=== PATIENT | female | born 1970 | race Caucasian/White ===

== ENCOUNTER 2017-06-05 16:04 | Inpatient (IN) | payer MEDICARE, OTHER ==
[2017-06-05] MEDS ORDERED: SODIUM CHLORIDE 0.9% 1,000 ML IV STA ×2 (16:40)
[2017-06-05] MEDS ORDERED: ONDANSETRON 4 MG/2 ML VIAL IVP STA (16:58)
[2017-06-05] MEDS ORDERED: THIAMINE 100 MG TAB PO SCH (17:00)
[2017-06-05 17:05] LABS: Basophils % (A) 1 %; CH 34.4; CHCM 34.7; Eosinophils # (A) 0.1 k/uL (0-0.7); Eosinophils % (A) 2 %; HCT 35.3 % (34.0-46.0); HDW 1.98; HGB 12.2 gm/dL (11.4-16.0); Luc # (Auto) 0.11; Luc % (Auto) 2; Lymphocytes # (A) 2.3 k/uL (1.0-4.8); Lymphocytes % (A) 37 %; MCH 34.5 pg (25.0-35.0); MCHC 34.7 g/dL (31.0-37.0); MCV 99.5 fL (80.0-100.0); Mean Platelet Volume 8.8; Monocytes # (A) 0.3 k/uL (0-1.0); Monocytes % (A) 5 %; Neutrophils # (A) 3.3 k/uL (1.3-7.7); Neutrophils % (A) 53 %; RBC 3.55 m/uL (3.80-5.40); RDW 13.4 % (11.5-15.5); WBC 6.2 k/uL (3.8-10.6); WBC (Perox) 6.07
[2017-06-05 17:10] LABS: INR 1.3 (<1.2); Prothrombin Time 12.9 sec (9.0-12.0)
[2017-06-05 17:14] LABS: ALT 31 U/L (9-52); AST 21 U/L (14-36); Alkaline Phosphatase 55 U/L (38-126); Amylase 36 U/L (30-110); Anion Gap 13 mmol/L; Blood Urea Nitrogen 12 mg/dL (7-17); Calcium 9.2 mg/dL (8.4-10.2); Carbon Dioxide 23 mmol/L (22-30); Chloride 102 mmol/L (98-107); Glucose 95 mg/dL (74-99); Non-African American GFR(MDRD) >60 (>60 ml/min/1.73 sqM); Potassium 4.8 mmol/L (3.5-5.1); Sodium 138 mmol/L (137-145); Total Bilirubin 0.3 mg/dL (0.2-1.3); Total Protein 6.3 g/dL (6.3-8.2)
[2017-06-05 17:29] LABS: Alcohol 153 mg/dL
[2017-06-05] MEDS ORDERED: SODIUM CHLORIDE 0.9% 1,000 ML IV ONE (18:11)
--- NOTE | 2017-06-05 18:11 | ED ---
Alcohol HPI - General Chief Complaint: Alcohol Stated Complaint: ETOH Time Seen by Provider: 06/05/17 16:32 Source: patient, EMS Mode of arrival: EMS Limitations: altered mental status - History of Present Illness Initial Comments: This 46-year-old white female presents by EMS with the complaint of alcohol intoxication. She apparently was found at the steps of a [place]oodoo. She is covered in feces and dogs. She apparently had been drinking. She is quite obtunded upon my evaluation and is not answering questions very well. She does relate that she drinks some alcohol but denies any drugs. History is otherwise very limited likely due to alcohol intoxication. Her boyfriend does give further history. He states that she has been sober for the past 2 months and this is the first time she's drank in 2 months. She apparently was placed on Campral to help her stop drinking approximately 2 months ago. Since being on that medication, she apparently has been confused at times per the boyfriend of 9 years. He relates that she otherwise has been doing fairly well. He states that he last saw her this morning at around noon. - Related Data Home Medications Medication Instructions Recorded Confirmed busPIRone HCL [Buspar] 30 mg PO BID 07/21/14 06/05/17 Cyclobenzaprine [Flexeril] 10 mg PO TID PRN 11/22/15 06/05/17 Prazosin HCl [Minipress] 2 mg PO HS 11/07/16 06/05/17 Acamprosate Calcium [Campral] 666 mg PO TID 06/05/17 06/05/17 Butalb/APAP/Caff 50-325-40Mg 1 tab PO TID PRN 06/05/17 06/05/17 [Fioricet 50-325-40] DULoxetine HCL [Cymbalta] 20 mg PO DAILY 06/05/17 06/05/17 Divalproex [Depakote] 250 mg PO BID 06/05/17 06/05/17 Escitalopram [Lexapro] 20 mg PO DAILY 06/05/17 06/05/17 Estrogen,Con/M-Progest Acet 1 tab PO DAILY 06/05/17 06/05/17 [Prempro 0.625-2.5 mg Tablet] Famotidine 40 mg PO DAILY 07/20/17 07/20/17 HYDROcodone/APAP 7.5-325MG [[place] 1 tab PO DAILY PRN 06/05/17 06/05/17 7.5-325] Loratadine [Claritin] 10 mg PO DAILY 06/05/17 06/05/17 Melatonin 3 mg PO HS 06/05/17 06/05/17 QUEtiapine FUMARATE [Seroquel Xr] 600 mg PO HS 06/05/17 06/05/17 Allergies Allergy/AdvReac Type Severity Reaction Status Date / Time Penicillins Allergy Anaphylaxis Verified 06/05/17 16:48 Cnagwxm-Wrz-Ads Reductase Allergy Rash/Hives Verified 06/05/17 16:48 Inhibitor venom-honey bee Allergy Anaphylaxis Verified 06/05/17 16:25 [bee venom (honey bee)] Review of Systems ROS Statement: Those systems with pertinent positive or pertinent negative responses have been documented in the HPI. ROS Other: All systems not noted in ROS Statement are negative. Past Medical History Past Medical History: Cancer, Fibromyalgia, GERD/Reflux, Hypertension, Osteoarthritis (OA), Seizure Disorder Additional Past Medical History / Comment(s): LAST SEIZURE 2 YRS AGO, BACK PAIN , HX OF MELANOMA. History of Any Multi-Drug Resistant Organisms: None Reported Past Surgical History: Hernia Repair, Orthopedic Surgery, Tubal Ligation Additional Past Surgical History / Comment(s): LAURA FUNDOPLICATION. EGD. COLONOSCOPY. RT KNEE SX TO REPAIR TENDON. LT KNEE SCOPE. BILAT FOOT SX CHILD. REVISION OF LAP. LAURA 01/11/16 Past Anesthesia/Blood Transfusion Reactions: No Reported Reaction Past Psychological History: Anxiety, Depression, PTSD Smoking Status: Current every day smoker Past Alcohol Use History: Occasional Past Drug Use History: None Reported - Past Family History Mother Family Medical History: Cancer General Exam - General Exam Comments Initial Comments: GENERAL: The patient is well nourished and well hydrated. VITAL SIGNS: Heart rate, blood pressure, respiratory rate reviewed as recorded in nurse's notes. EYES: Pupils are round and reactive. Extraocular movements are intact. No conjunctival / lid redness or swelling. ENT: No external evidence of injury, swelling, or ecchymosis. Airway is patent. Throat is clear. NECK: Nontender. No swelling or evidence of injury. No subcutaneous emphysema. Trachea is midline. No thyroid mass. HEART: Regular rate and rhythm. Good peripheral pulses. LUNGS/CHEST: Breath sounds clear and equal bilaterally. No rales, rhonchi, or wheezes. No ecchymosis, subcutaneous emphysema, or tenderness. ABDOMEN: Abdomen soft without tenderness. No palpable masses or organomegaly. No peritoneal signs. No abdominal wall swelling or ecchymosis. EXTREMITIES: No extremity tenderness. Normal muscle tone and function. No thoracolumbar tenderness. NEUROLOGIC: Sensation is grossly intact. Cranial nerve exam reveals face is symmetrical, tongue is midline. Patient is obtunded and does not answer questions well. She will wake up with minor physical stimuli. SKIN: No abrasions or ecchymosis is noted. No induration or masses noted. PSYCHIATRIC: Alert and oriented. Appropriate behavior and judgment. Limitations: altered mental status Course Vital Signs 06/05/17 06/05/17 06/05/17 16:25 17:02 17:07 Temperature 97.6 F Pulse Rate 77 74 73 Respiratory 16 16 18 Rate Blood Pressure 97/62 97/62 91/57 O2 Sat by Pulse 96 97 95 Oximetry 06/05/17 06/05/17 06/05/17 18:41 19:00 19:23 Temperature 97.6 F Pulse Rate 76 77 77 Respiratory 18 18 18 Rate Blood Pressure 107/68 114/72 O2 Sat by Pulse 98 96 Oximetry 06/05/17 20:00 Temperature Pulse Rate 78 Respiratory 18 Rate Blood Pressure 123/73 O2 Sat by Pulse Oximetry Medical Decision Making - Medical Decision Making The patient is seen and examined. All diagnostics are reviewed. She is placed on the cardiorespiratory monitor and is stable. She is quite obtunded but will wake up with some minor stimuli. Her alcohol was elevated at 143. It is not felt that her significant obtundation is likely due to an alcohol of this level. She therefore had a computed tomography scan of the brain which did not show any acute processes. Her chest x-ray shows pneumonia. Her blood pressure was slightly low and she received some IV fluids. She had a laboratory analysis completed which essentially was all within normal limits except for an ammonia level over 500. The exact cause of this severe hyperammoniemia is not definitively determine but it is felt as though it potentially could be related to a drug interaction or due to the new medication. The Depakote level is ordered and is pending. The case is discussed with internal medicine and they are agreeable to admission. She started on some lactulose orally as well as some Levaquin intravenously. Her mental status has improved on recheck but she is still fairly sleepy. - Lab Data Result diagrams: 06/05/17 16:55 06/05/17 16:55 Lab Results 06/05/17 06/05/17 06/05/17 Range/Units 16:55 16:55 16:55 WBC 6.2 (3.8-10.6) k/uL RBC 3.55 L (3.80-5.40) m/uL Hgb 12.2 (11.4-16.0) gm/dL Hct 35.3 (34.0-46.0) % MCV 99.5 (80.0-100.0) fL MCH 34.5 (25.0-35.0) pg MCHC 34.7 (31.0-37.0) g/dL RDW 13.4 (11.5-15.5) % Plt Count 181 (150-450) k/uL Neutrophils % 53 % Lymphocytes % 37 % Monocytes % 5 % Eosinophils % 2 % Basophils % 1 % Neutrophils # 3.3 (1.3-7.7) k/uL Lymphocytes # 2.3 (1.0-4.8) k/uL Monocytes # 0.3 (0-1.0) k/uL Eosinophils # 0.1 (0-0.7) k/uL Basophils # 0.0 (0-0.2) k/uL PT 12.9 H (9.0-12.0) sec INR 1.3 H (<1.2) Sodium 138 (137-145) mmol/L Potassium 4.8 (3.5-5.1) mmol/L Chloride 102 (98-107) mmol/L Carbon Dioxide 23 (22-30) mmol/L Anion Gap 13 mmol/L BUN 12 (7-17) mg/dL Creatinine 0.90 (0.52-1.04) mg/dL Est GFR (MDRD) Af Amer >60 (>60 ml/min/1.73 sqM) Est GFR (MDRD) Non-Af >60 (>60 ml/min/1.73 sqM) Glucose 95 (74-99) mg/dL Calcium 9.2 (8.4-10.2) mg/dL Total Bilirubin 0.3 (0.2-1.3) mg/dL AST 21 (14-36) U/L ALT 31 (9-52) U/L Alkaline Phosphatase 55 (38-126) U/L Ammonia (<30) umol/L Total Protein 6.3 (6.3-8.2) g/dL Albumin 3.6 (3.5-5.0) g/dL Amylase 36 (30-110) U/L Lipase 143 (23-300) U/L TSH (0.465-4.680) mIU/L Urine Opiates Screen (NotDetected) Ur Oxycodone Screen (NotDetected) Urine Methadone Screen (NotDetected) Ur Propoxyphene Screen (NotDetected) Ur Barbiturates Screen (NotDetected) Valproic Acid ug/mL U Tricyclic Antidepress (NotDetected) Ur Phencyclidine Scrn (NotDetected) Ur Amphetamines Screen (NotDetected) U Methamphetamines Scrn (NotDetected) U Benzodiazepines Scrn (NotDetected) Urine Cocaine Screen (NotDetected) U Marijuana (THC) Screen (NotDetected) Serum Alcohol 153 mg/dL 06/05/17 06/05/17 06/05/17 Range/Units 16:55 16:55 18:09 WBC (3.8-10.6) k/uL RBC (3.80-5.40) m/uL Hgb (11.4-16.0) gm/dL Hct (34.0-46.0) % MCV (80.0-100.0) fL MCH (25.0-35.0) pg MCHC (31.0-37.0) g/dL RDW (11.5-15.5) % Plt Count (150-450) k/uL Neutrophils % % Lymphocytes % % Monocytes % % Eosinophils % % Basophils % % Neutrophils # (1.3-7.7) k/uL Lymphocytes # (1.0-4.8) k/uL Monocytes # (0-1.0) k/uL Eosinophils # (0-0.7) k/uL Basophils # (0-0.2) k/uL PT (9.0-12.0) sec INR (<1.2) Sodium (137-145) mmol/L Potassium (3.5-5.1) mmol/L Chloride (98-107) mmol/L Carbon Dioxide (22-30) mmol/L Anion Gap mmol/L BUN (7-17) mg/dL Creatinine (0.52-1.04) mg/dL Est GFR (MDRD) Af Amer (>60 ml/min/1.73 sqM) Est GFR (MDRD) Non-Af (>60 ml/min/1.73 sqM) Glucose (74-99) mg/dL Calcium (8.4-10.2) mg/dL Total Bilirubin (0.2-1.3) mg/dL AST (14-36) U/L ALT (9-52) U/L Alkaline Phosphatase (38-126) U/L Ammonia 506 H (<30) umol/L Total Protein (6.3-8.2) g/dL Albumin (3.5-5.0) g/dL Amylase (30-110) U/L Lipase (23-300) U/L TSH 1.290 (0.465-4.680) mIU/L Urine Opiates Screen (NotDetected) Ur Oxycodone Screen (NotDetected) Urine Methadone Screen (NotDetected) Ur Propoxyphene Screen (NotDetected) Ur Barbiturates Screen (NotDetected) Valproic Acid 59.1 ug/mL U Tricyclic Antidepress (NotDetected) Ur Phencyclidine Scrn (NotDetected) Ur Amphetamines Screen (NotDetected) U Methamphetamines Scrn (NotDetected) U Benzodiazepines Scrn (NotDetected) Urine Cocaine Screen (NotDetected) U Marijuana (THC) Screen (NotDetected) Serum Alcohol mg/dL 06/05/17 Range/Units 18:52 WBC (3.8-10.6) k/uL RBC (3.80-5.40) m/uL Hgb (11.4-16.0) gm/dL Hct (34.0-46.0) % MCV (80.0-100.0) fL MCH (25.0-35.0) pg MCHC (31.0-37.0) g/dL RDW (11.5-15.5) % Plt Count (150-450) k/uL Neutrophils % % Lymphocytes % % Monocytes % % Eosinophils % % Basophils % % Neutrophils # (1.3-7.7) k/uL Lymphocytes # (1.0-4.8) k/uL Monocytes # (0-1.0) k/uL Eosinophils # (0-0.7) k/uL Basophils # (0-0.2) k/uL PT (9.0-12.0) sec INR (<1.2) Sodium (137-145) mmol/L Potassium (3.5-5.1) mmol/L Chloride (98-107) mmol/L Carbon Dioxide (22-30) mmol/L Anion Gap mmol/L BUN (7-17) mg/dL Creatinine (0.52-1.04) mg/dL Est GFR (MDRD) Af Amer (>60 ml/min/1.73 sqM) Est GFR (MDRD) Non-Af (>60 ml/min/1.73 sqM) Glucose (74-99) mg/dL Calcium (8.4-10.2) mg/dL Total Bilirubin (0.2-1.3) mg/dL AST (14-36) U/L ALT (9-52) U/L Alkaline Phosphatase (38-126) U/L Ammonia (<30) umol/L Total Protein (6.3-8.2) g/dL Albumin (3.5-5.0) g/dL Amylase (30-110) U/L Lipase (23-300) U/L TSH (0.465-4.680) mIU/L Urine Opiates Screen Detected H (NotDetected) Ur Oxycodone Screen Not Detected (NotDetected) Urine Methadone Screen Not Detected (NotDetected) Ur Propoxyphene Screen Not Detected (NotDetected) Ur Barbiturates Screen Detected H (NotDetected) Valproic Acid ug/mL U Tricyclic Antidepress Detected H (NotDetected) Ur Phencyclidine Scrn Not Detected (NotDetected) Ur Amphetamines Screen Not Detected (NotDetected) U Methamphetamines Scrn Not Detected (NotDetected) U Benzodiazepines Scrn Not Detected (NotDetected) Urine Cocaine Screen Not Detected (NotDetected) U Marijuana (THC) Screen Not Detected (NotDetected) Serum Alcohol mg/dL Disposition Clinical Impression: Alcohol intoxication, Mental status change, Hyperammonemia, Alcohol abuse, Pneumonia Disposition: ADMITTED IP TO THIS HOSP Condition: Fair Time of Disposition: 19:48 Decision Date: 06/05/17 Decision Time: 19:48
--- NOTE | 2017-06-05 18:37 | CT ---
EXAMINATION TYPE: CT brain wo con DATE OF EXAM: 06/05/2017 COMPARISON: NONE HISTORY: Patient poor historian. Patient ETOH. Altered mental status. CT DLP: 768.6 mGycm. Automated Exposure Control for Dose Reduction was Utilized. TECHNIQUE: CT scan of the head is performed without contrast. FINDINGS: Ventricles of normal size. There is no mass effect nor midline shift. There is no sign of i ntracranial hemorrhage. The calvarium is intact. IMPRESSION: Negative CT scan of the brain..
--- NOTE | 2017-06-05 18:40 | XR ---
EXAMINATION TYPE: XR chest 2V DATE OF EXAM: 06/05/2017 COMPARISON: NONE HISTORY: Cough TECHNIQUE: Frontal and lateral views of the chest are obtained. FINDINGS: There is no heart failure nor confluent pneumonic infiltrate. There is slight coarsening o f interstitial markings. Costophrenic angles are clear. There are chest leads. IMPRESSION: Slight increased lung markings are nonspecific and could relate to mild interstitial pne umonia. Normal heart.
[2017-06-05] MEDS ORDERED: LACTULOSE 20 GM/30 ML CUP PO ONE (19:41)
[2017-06-05] MEDS ORDERED: LEVOFLOXACIN 750MG-D5W PMX 750 MG in DEXTROSE/WATER 1 150ML.BAG IVPB STA (19:42)
[2017-06-05] MEDS ORDERED: NALOXONE 0.4 MG/ML 1 ML VIAL IV PRN (20:27)
[2017-06-05] MEDS ORDERED: ONDANSETRON 4 MG/2 ML VIAL IVP PRN (20:27)
[2017-06-05] MEDS ORDERED: BUTALB/APAP/CAFF 50-325-40MG TAB PO PRN (20:34)
[2017-06-05] MEDS ORDERED: CYCLOBENZAPRINE 10 MG TAB PO PRN (20:34)
[2017-06-05] MEDS ORDERED: MELATONIN 3 MG TABLET PO SCH (21:00)
[2017-06-05] MEDS ORDERED: PRAZOSIN 1 MG CAP PO SCH (21:00)
[2017-06-05] MEDS ORDERED: LORazepam 2 MG/ML SYRINGE IV PRN ×6 (21:24→23:27)
[2017-06-05 21:38] LABS: Glucose,Whole Blood 87 mg/dL (75-99)
[2017-06-05] MEDS ORDERED: THIAMINE 100 MG/ML 2 ML VIAL IM STA (21:47)
[2017-06-05 22:10] VITALS: BMI 33.3
[2017-06-05] MEDS: LACTULOSE 20 GM/30 ML CUP PO SCH (22:43)
[2017-06-05] MEDS: DIVALPROEX 250 MG TABLET.DR PO SCH (22:43)
[2017-06-05] MEDS: busPIRone HCl 10 MG TAB PO SCH (22:43)
[2017-06-05] MEDS: SODIUM CHLORIDE 0.9% 1,000 ML IV SCH (22:45)
[2017-06-05] MEDS: DULoxetine HCL 60 MG CAPSULE.DR PO SCH (22:48)
[2017-06-06] MEDS ORDERED: ENOXAPARIN 40 MG/0.4 ML SYRINGE SQ SCH (09:00)
[2017-06-06] MEDS ORDERED: ESCITALOPRAM 20 MG TAB PO SCH (09:00)
[2017-06-06] MEDS ORDERED: NON-FORMULARY DRUG (Estrogen,Con/M-Progest Acet [Prempro 0.625-2.5 Mg Tablet] 1 TAB) PO SCH (09:00)
[2017-06-06] MEDS ORDERED: FAMOTIDINE 20 MG TAB PO SCH (09:00)
[2017-06-06] MEDS ORDERED: LORATADINE 10 MG TAB PO SCH (09:00)
[2017-06-06] MEDS: busPIRone HCl 10 MG TAB PO SCH (09:32)
[2017-06-06] MEDS: DULoxetine HCL 60 MG CAPSULE.DR PO SCH (09:33)
[2017-06-06] MEDS: LACTULOSE 20 GM/30 ML CUP PO SCH ×2 (09:33→12:37)
[2017-06-06] MEDS: DIVALPROEX 250 MG TABLET.DR PO SCH (09:34)
[2017-06-06] MEDS: SODIUM CHLORIDE 0.9% 1,000 ML IV SCH (09:35)
[2017-06-06 10:57] VITALS: RESP 18
--- NOTE | 2017-06-06 11:41 | P.CONS ---
History of Present Illness - Reason for Consult Consult date: 06/06/17 Elevated ammonia level Requesting physician: Vidya Billingsley - History of Present Illness 46-year-old female with a long-standing history of alcohol abuse dependency more than 20 years [facility] own feces. Drinks Multiple Beers on a Daily Basis, was Sober for the last 2 months. Additional past medical history anxiety depression fibromyalgia seizures, GERD with fundoplication. Consultation requested for elevated ammonia level 506 received lactulose presently 20. White count 6.2. Hemoglobin 12.2. MCV 99. Platelet 181. INR 1.3. Serum alcohol 153. Barbiturates tricyclic antidepressants and opiates positive and urinalysis. LFTs lipase normal. Review of Systems Constitutional: Denies fever, chills, sweats, weight gain, or loss. HEENT: Negative for migraines, blurred vision or loss, earaches, drainage, tinnitus, oral mucosal lesions, dysphagia, or odynophagia. CARDIAC: Hypertension. Negative for chest pain, arrhythmias, or palpitation. RESPIRATORY: Negative for shortness of breath, hemoptysis, cough, or sputum production. GI: See HPI for pertinent findings. : Negative for hematuria, urgency, frequency, polyuria, or dysuria. GYNc: Denies possibility of . Negative vaginal discharge. MUSCULOSKELETAL: Fibromyalgia Negative for muscle aches, swelling, arthritis, and arthralgias. NEUROLOGIC: Negative for stroke or TIA. ENDOCRINE: Negative for thyroid problems. SKIN: Melanoma. Negative for rash or itching. PSYCHIATRIC: History of depression and anxiety All systems: negative (See HPI) Past Medical History Past Medical History: Cancer, Fibromyalgia, GERD/Reflux, Hypertension, Osteoarthritis (OA), Seizure Disorder Additional Past Medical History / Comment(s): LAST SEIZURE 2 YRS AGO, BACK PAIN , HX OF MELANOMA. History of Any Multi-Drug Resistant Organisms: None Reported Past Surgical History: Hernia Repair, Orthopedic Surgery, Tubal Ligation Additional Past Surgical History / Comment(s): LAURA FUNDOPLICATION. EGD. COLONOSCOPY. RT KNEE SX TO REPAIR TENDON. LT KNEE SCOPE. BILAT FOOT SX CHILD. REVISION OF LAP. LAURA 01/11/16 Past Anesthesia/Blood Transfusion Reactions: No Reported Reaction Past Psychological History: Anxiety, Depression, PTSD Smoking Status: Current every day smoker Past Alcohol Use History: Occasional Additional Past Alcohol Use History / Comment(s): HAS BEEN SMOKING SINCE AGE 16 , SMOKES 3/4 PPD. HAS BEEN SMOKING FOR 30 YRS. Past Drug Use History: None Reported - Past Family History Mother Family Medical History: Cancer Medications and Allergies Home Medications Medication Instructions Recorded Confirmed Type busPIRone HCL [Buspar] 30 mg PO BID 07/21/14 06/06/17 History Cyclobenzaprine [Flexeril] 10 mg PO TID PRN 11/22/15 06/06/17 History Prazosin HCl [Minipress] 4 mg PO HS 11/07/16 06/06/17 History Albuterol Inhaler [Ventolin Hfa 2 puff INHALATION RT-Q6H PRN 06/05/17 06/06/17 History Inhaler] Butalb/APAP/Caff 50-325-40Mg 1 tab PO TID PRN 06/05/17 06/06/17 History [Fioricet 50-325-40] DULoxetine HCL [Cymbalta] 60 mg PO BID 06/05/17 06/06/17 History Divalproex Sodium 500 mg PO BID 06/05/17 06/06/17 History Famotidine [Pepcid] 20 mg PO BID 06/05/17 06/06/17 History HYDROcodone/APAP 7.5-325MG [[place] 1 tab PO DAILY PRN 06/05/17 06/06/17 History 7.5-325] Ibuprofen [Motrin] 800 mg PO TID PRN 06/05/17 06/06/17 History Lisinopril [Zestril] 5 mg PO DAILY 06/05/17 06/06/17 History Metoprolol Tartrate [Lopressor] 50 mg PO DAILY 06/05/17 06/06/17 History QUEtiapine FUMARATE [Seroquel Xr] 600 mg PO HS 06/05/17 06/06/17 History Rivaroxaban [Xarelto] 20 mg PO HS 06/05/17 06/06/17 History Allergies Allergy/AdvReac Type Severity Reaction Status Date / Time Penicillins Allergy Anaphylaxis Verified 06/06/17 08:55 [id number]-Mfu-Nmp Reductase Allergy Rash/Hives Verified 06/06/17 08:55 Inhibitor venom-honey bee Allergy Anaphylaxis Verified 06/06/17 08:55 [bee venom (honey bee)] Physical Exam Vitals: Vital Signs Temp Pulse Pulse Resp BP BP Pulse Ox 06/06/17 08:00 97.8 F 89 18 131/72 94 L 06/06/17 03:38 98.1 F 80 17 134/86 96 06/06/17 00:00 98.0 F 82 17 130/82 98 06/05/17 21:26 98.4 F 77 18 136/75 98 06/05/17 21:21 98.1 F 86 18 131/89 97 06/05/17 20:00 78 18 123/73 06/05/17 19:23 97.6 F 77 18 114/72 96 06/05/17 19:00 77 18 06/05/17 18:41 76 18 107/68 98 06/05/17 17:07 73 18 91/57 95 06/05/17 17:02 74 16 97/62 97 06/05/17 16:25 97.6 F 77 16 97/62 96 Intake and Output 06/05/17 06/06/17 06/06/17 22:59 06:59 14:59 Intake Total 2120 Output Total 550 600 Balance 1570 -600 Intake: Amount of Fluid Infused ( 1300 ml) Intake, IV Titration 340 Amount Levofloxacin 750Mg-D5w 100 Pmx 750 mg In Dextrose/ Water 1 150ml.bag @ 100 mls/hr IVPB DAILY@2100 YASEMIN Rx#:[id number] Sodium Chloride 0.9% 1, 240 000 ml @ 80 mls/hr IV . [id number] YASEMIN Rx#:[id number] Oral 480 Output: Urine 550 600 Other: Voiding Method Toilet Toilet # Voids 1 1 Weight 102.3 kg 102.3 kg General appearance: The patient is alert, oriented, in no acute distress. HET: Head is normocephalic and atraumatic. Pupils are equal and reactive. Oropharynx is clear without lesions. Neck: Supple without lymphadenopathy. Trachea midline. Heart: S1 S2. Regular rate and rhythm. Lungs: No crackles or wheezes are heard. Abdomen: Soft, nontender, nondistended with bowel sounds. No peritoneal signs. No palpable organomegaly or masses. Extremities: Normal skin color and turgor. No cyanosis, rash, ulceration, clubbing, or edema. Radial and pedal pulses are 2/4 bilaterally. Neurological: No focal deficits. Strength and sensation are grossly intact. Results CBC & Chem 7: 06/05/17 16:55 06/05/17 16:55 Labs: Abnormal Lab Results - Last 24 Hours (Table) 06/05/17 06/05/17 06/05/17 Range/Units 16:55 16:55 18:09 RBC 3.55 L (3.80-5.40) m/uL PT 12.9 H (9.0-12.0) sec INR 1.3 H (<1.2) Ammonia 506 H (<30) umol/L Urine Opiates Screen (NotDetected) Ur Barbiturates Screen (NotDetected) U Tricyclic Antidepress (NotDetected) 06/05/17 Range/Units 18:52 RBC (3.80-5.40) m/uL PT (9.0-12.0) sec INR (<1.2) Ammonia (<30) umol/L Urine Opiates Screen Detected H (NotDetected) Ur Barbiturates Screen Detected H (NotDetected) U Tricyclic Antidepress Detected H (NotDetected) Assessment and Plan (1) Alcohol abuse Status: Acute (2) Alcohol intoxication Status: Acute (3) Hyperammonemia Narrative/Plan: Possible metabolic possible hepatic encephalopathy secondary to alcohol intoxication Status: Acute Plan: 1. Alcohol abstinence strongly advised. Social work consultation. Diet as tolerated. Supportive measures. Discharge per medicine. Assessment and plan of care discussed with Dr. Wilkes
[2017-06-06] MEDS ORDERED: THIAMINE 100 MG TAB PO SCH (12:00)
[2017-06-06 13:15] VITALS: BP 119/74; PULSE 93; TEMP 97.5
--- NOTE | 2017-06-06 14:00 | P.HPIM ---
History of Present Illness 46-year-old female with a long-standing history of alcohol abuse dependency more than 20 years found unresponsive at local [facility] covered in her own feces. Drinks Multiple Beers on a Daily Basis, was Sober for the last 2 months. Patient does have seizure history does take valproate patient is found to have elevated ammonia level. Patient had elevated ammonia level yesterday in about 500 and it has come down to 20 now patient is presently alert oriented 3. Patient was discharged today on lactulose for elevated ammonia probably related to earlier stages of cirrhosis. Along with the the antiseizure medications. Review of Systems REVIEW OF SYSTEMS: CONSTITUTIONAL: No fever, no malaise, no fatigue. HEENT: No recent visual problems or hearing problems. Denied any sore throat. CARDIOVASCULAR: No chest pain, orthopnea, PND, no palpitations, no syncope. PULMONARY: No shortness of breath, no cough, no hemoptysis. GASTROINTESTINAL: No diarrhea, no nausea, no vomiting, no abdominal pain. Normoactive bowel sounds. NEUROLOGICAL: No headaches, no weakness, no numbness. HEMATOLOGICAL: Denies any bleeding or petechiae. GENITOURINARY: Denies any burning micturition, frequency, or urgency. MUSCULOSKELETAL/RHEUMATOLOGICAL: Denies any joint pain, swelling, or any muscle pain. ENDOCRINE: Denies any polyuria or polydipsia. The rest of the 14-point review of systems is negative. Past Medical History Past Medical History: Cancer, Fibromyalgia, GERD/Reflux, Hypertension, Osteoarthritis (OA), Seizure Disorder Additional Past Medical History / Comment(s): LAST SEIZURE 2 YRS AGO, BACK PAIN , HX OF MELANOMA. History of Any Multi-Drug Resistant Organisms: None Reported Past Surgical History: Hernia Repair, Orthopedic Surgery, Tubal Ligation Additional Past Surgical History / Comment(s): LAURA FUNDOPLICATION. EGD. COLONOSCOPY. RT KNEE SX TO REPAIR TENDON. LT KNEE SCOPE. BILAT FOOT SX CHILD. REVISION OF LAP. LAURA 01/11/16 Past Anesthesia/Blood Transfusion Reactions: No Reported Reaction Past Psychological History: Anxiety, Depression, PTSD Smoking Status: Current every day smoker Past Alcohol Use History: Occasional Additional Past Alcohol Use History / Comment(s): HAS BEEN SMOKING SINCE AGE 16 , SMOKES 3/4 PPD. HAS BEEN SMOKING FOR 30 YRS. Past Drug Use History: None Reported - Past Family History Mother Family Medical History: Cancer Medications and Allergies Home Medications Medication Instructions Recorded Confirmed Type busPIRone HCL [Buspar] 30 mg PO BID 07/21/14 06/06/17 History Cyclobenzaprine [Flexeril] 10 mg PO TID PRN 11/22/15 06/06/17 History Prazosin HCl [Minipress] 4 mg PO HS 11/07/16 06/06/17 History Albuterol Inhaler [Ventolin Hfa 2 puff INHALATION RT-Q6H PRN 06/05/17 06/06/17 History Inhaler] Butalb/APAP/Caff 50-325-40Mg 1 tab PO TID PRN 06/05/17 06/06/17 History [Fioricet 50-325-40] DULoxetine HCL [Cymbalta] 60 mg PO BID 06/05/17 06/06/17 History Divalproex Sodium 500 mg PO BID 06/05/17 06/06/17 History Famotidine [Pepcid] 20 mg PO BID 06/05/17 06/06/17 History HYDROcodone/APAP 7.5-325MG [[place] 1 tab PO DAILY PRN 06/05/17 06/06/17 History 7.5-325] Ibuprofen [Motrin] 800 mg PO TID PRN 06/05/17 06/06/17 History Lisinopril [Zestril] 5 mg PO DAILY 06/05/17 06/06/17 History Metoprolol Tartrate [Lopressor] 50 mg PO DAILY 06/05/17 06/06/17 History QUEtiapine FUMARATE [Seroquel Xr] 600 mg PO HS 06/05/17 06/06/17 History Rivaroxaban [Xarelto] 20 mg PO HS 06/05/17 06/06/17 History Allergies Allergy/AdvReac Type Severity Reaction Status Date / Time Penicillins Allergy Anaphylaxis Verified 06/06/17 08:55 Odghjkq-Afo-Vmj Reductase Allergy Rash/Hives Verified 06/06/17 08:55 Inhibitor venom-honey bee Allergy Anaphylaxis Verified 06/06/17 08:55 [bee venom (honey bee)] Physical Exam Vitals: Vital Signs Temp Pulse Pulse Resp BP BP Pulse Ox 06/06/17 12:00 97.5 F L 93 18 119/74 99 06/06/17 08:00 97.8 F 89 18 131/72 94 L 06/06/17 03:38 98.1 F 80 17 134/86 96 06/06/17 00:00 98.0 F 82 17 130/82 98 06/05/17 21:26 98.4 F 77 18 136/75 98 06/05/17 21:21 98.1 F 86 18 131/89 97 06/05/17 20:00 78 18 123/73 06/05/17 19:23 97.6 F 77 18 114/72 96 06/05/17 19:00 77 18 06/05/17 18:41 76 18 107/68 98 06/05/17 17:07 73 18 91/57 95 06/05/17 17:02 74 16 97/62 97 06/05/17 16:25 97.6 F 77 16 97/62 96 Intake and Output 06/05/17 06/06/17 06/06/17 22:59 06:59 14:59 Intake Total 2120 Output Total 550 600 Balance 1570 -600 Intake: Amount of Fluid Infused ( 1300 ml) Intake, IV Titration 340 Amount Levofloxacin 750Mg-D5w 100 Pmx 750 mg In Dextrose/ Water 1 150ml.bag @ 100 mls/hr IVPB DAILY@2100 YASEMIN Rx#:[id number] Sodium Chloride 0.9% 1, 240 000 ml @ 80 mls/hr IV . [id number] YASEMIN Rx#:[id number] Oral 480 Output: Urine 550 600 Other: Voiding Method Toilet Toilet # Voids 1 1 Weight 102.3 kg 102.3 kg PHYSICAL EXAMINATION: GENERAL: The patient is alert and oriented x3, not in any acute distress. Well developed, well nourished. HEENT: Pupils are round and equally reacting to light. EOMI. No scleral icterus. No conjunctival pallor. Normocephalic, atraumatic. No pharyngeal erythema. No thyromegaly. CARDIOVASCULAR: S1 and S2 present. No murmurs, rubs, or gallops. PULMONARY: Chest is clear to auscultation, no wheezing or crackles. ABDOMEN: Soft, nontender, nondistended, normoactive bowel sounds. No palpable organomegaly. MUSCULOSKELETAL: No joint swelling or deformity. EXTREMITIES: No cyanosis, clubbing, or pedal edema. NEUROLOGICAL: Gross neurological examination did not reveal any focal deficits. SKIN: No rashes. Results CBC & Chem 7: 06/05/17 16:55 06/05/17 16:55 Labs: Abnormal Lab Results - Last 24 Hours (Table) 06/05/17 06/05/17 06/05/17 Range/Units 16:55 16:55 18:09 RBC 3.55 L (3.80-5.40) m/uL PT 12.9 H (9.0-12.0) sec INR 1.3 H (<1.2) Ammonia 506 H (<30) umol/L Urine Opiates Screen (NotDetected) Ur Barbiturates Screen (NotDetected) U Tricyclic Antidepress (NotDetected) 06/05/17 Range/Units 18:52 RBC (3.80-5.40) m/uL PT (9.0-12.0) sec INR (<1.2) Ammonia (<30) umol/L Urine Opiates Screen Detected H (NotDetected) Ur Barbiturates Screen Detected H (NotDetected) U Tricyclic Antidepress Detected H (NotDetected) Thrombosis Risk Factor Assmnt - Choose All That Apply Each Factor Represents 1 point: Age 41-60 years, Obesity (BMI >25) Other congenital or acquired thrombophilia - If yes, enter type in comment: No Thrombosis Risk Factor Assessment Total Risk Factor Score: 2 Thrombosis Risk Factor Assessment Level: Low Risk Assessment and Plan Plan: #1 altered mental status: Secondary to toxic encephalopathy from alcohol use excessive and also superimposed hepatic encephalopathy. Patient's hyperammonemia improved patient will be discharged today with extensive counseling to quit alcohol and patient will follow-up with the gastroneurology as an outpatient. 2 elevated INR: Secondary to probable early stages of cirrhosis. Patient really doesn't have any ascites and patient followed gastro-oncology as an outpatient. #3 seizure disorder: Patient will continue with Depakote as patient only has mild cirrhosis or liver disease #4 fibromyalgia #5 osteoarthritis #6 gastroesophageal reflux disease #7 obesity For above-mentioned chronic medical problems patient will continue her home medications patient will be discharged on lactulose titrating for 2-3 bowel movements a day.
--- NOTE | 2017-06-06 14:01 | P.DS ---
Providers Date of admission: 06/05/17 20:35 Attending physician: Vidya Billingsley Consults: 06/05/17 20:28 Consult Physician Urgent Consulting Provider: Michelle Wilkes Consult Reason/Comments: hyperammoniumenia Do you want consulting provider notified?: Yes Primary care physician: Humza Willis [facility] Course: Please refer to my HPI Patient Condition at Discharge: Fair Plan - Discharge Summary New Discharge Prescriptions: New Lactulose [Cephulac] 20 gm PO TID #300 ml No Action busPIRone HCL [Buspar] 30 mg PO BID Cyclobenzaprine [Flexeril] 10 mg PO TID PRN PRN Reason: Muscle Spasm Prazosin HCl [Minipress] 4 mg PO HS Butalb/APAP/Caff 50-325-40Mg [Fioricet 50-325-40] 1 tab PO TID PRN PRN Reason: Headache QUEtiapine FUMARATE [Seroquel Xr] 600 mg PO HS HYDROcodone/APAP 7.5-325MG [[place] 7.5-325] 1 tab PO DAILY PRN PRN Reason: Pain Lisinopril [Zestril] 5 mg PO DAILY Rivaroxaban [Xarelto] 20 mg PO HS Albuterol Inhaler [Ventolin Hfa Inhaler] 2 puff INHALATION RT-Q6H PRN PRN Reason: Shortness Of Breath Metoprolol Tartrate [Lopressor] 50 mg PO DAILY Ibuprofen [Motrin] 800 mg PO TID PRN PRN Reason: Pain Divalproex Sodium 500 mg PO BID DULoxetine HCL [Cymbalta] 60 mg PO BID Famotidine [Pepcid] 20 mg PO BID Discharge Medication List busPIRone HCL [Buspar] 30 mg PO BID 07/21/14 [History] Cyclobenzaprine [Flexeril] 10 mg PO TID PRN 11/22/15 [History] Prazosin HCl [Minipress] 4 mg PO HS 11/07/16 [History] Albuterol Inhaler [Ventolin Hfa Inhaler] 2 puff INHALATION RT-Q6H PRN 06/05/17 [ History] Butalb/APAP/Caff 50-325-40Mg [Fioricet 50-325-40] 1 tab PO TID PRN 06/05/17 [ History] DULoxetine HCL [Cymbalta] 60 mg PO BID 06/05/17 [History] Divalproex Sodium 500 mg PO BID 06/05/17 [History] Famotidine [Pepcid] 20 mg PO BID 06/05/17 [History] HYDROcodone/APAP 7.5-325MG [[place] 7.5-325] 1 tab PO DAILY PRN 06/05/17 [History] Ibuprofen [Motrin] 800 mg PO TID PRN 06/05/17 [History] Lisinopril [Zestril] 5 mg PO DAILY 06/05/17 [History] Metoprolol Tartrate [Lopressor] 50 mg PO DAILY 06/05/17 [History] QUEtiapine FUMARATE [Seroquel Xr] 600 mg PO HS 06/05/17 [History] Rivaroxaban [Xarelto] 20 mg PO HS 06/05/17 [History] Lactulose [Cephulac] 20 gm PO TID #300 ml 06/06/17 [Rx] Follow up Appointment(s)/Referral(s): Hugo Mcfarland MD [STAFF PHYSICIAN] - 1 Week Ender Cihng MD [Primary Care Provider] - 3 Days Discharge Disposition: HOME SELF-CARE
[2017-06-06] MEDS ORDERED: LEVOFLOXACIN 750MG-D5W PMX 750 MG in DEXTROSE/WATER 1 150ML.BAG IVPB SCH (21:00)
== END 2017-06-06 17:32 | disposition home or self-care (01) | DRG 897 ==
LOC: EC 16:04 → 6SEL 20:35
PROVIDERS: ADMIT Internal Medicine; ATTEND Internal Medicine
DX: F10.229 Alcohol dependence with intoxication, unspecified (principal); G31.2 Degeneration of nervous system due to alcohol; K74.60 Unspecified cirrhosis of liver; K70.40 Alcoholic hepatic failure without coma; E66.9 Obesity, unspecified; I10 Essential (primary) hypertension; F32.9 Major depressive disorder, single episode, unspecified; F17.200 Nicotine dependence, unspecified, uncomplicated; F43.10 Post-traumatic stress disorder, unspecified; G40.909 Epilepsy, unspecified, not intractable, without status epilepticus; K21.9 Gastro-esophageal reflux disease without esophagitis; M19.90 Unspecified osteoarthritis, unspecified site; M79.7 Fibromyalgia; F41.9 Anxiety disorder, unspecified; Z79.899 Other long term (current) drug therapy; Z85.820 Personal history of malignant melanoma of skin; Z68.25 Body mass index [BMI] 25.0-25.9, adult; Z88.0 Allergy status to penicillin; Z88.8 Allergy status to other drugs, medicaments and biological substances
CPT/HCPCS: 36415; 70450; 71020; 80053; 80164; 80306; 80320; 82140; 82150; 83690; 84443; 85025; 85610; 87040; 87324; 93005; 96361; 96365; 96375; 99285

== ENCOUNTER → 2018-01-20 | Outpatient (CLI) | payer MEDICARE, OTHER ==
--- NOTE | 2018-01-20 14:53 | MM ---
Reason for exam: clinical finding. Last mammogram was performed 6 years and 5 months ago. History: Patient is postmenopausal. Family history of breast cancer in mother and premenopausal breast cancer in aunt. Physical Findings: Nurse did not find any significant physical abnormalities on exam. MG 3D Diag Mammo W/Cad ALEX Bilateral CC and MLO view(s) were taken. Prior study comparison: August 19, 2011, bilateral digital screening mammo w/CAD. June 29, 2010, bilateral digital screening mammogram. There are scattered fibroglandular densities. No significant new findings when compared with previous films. These results were verbally communicated with the patient and result sheet given to the patient on 01/20/18. ASSESSMENT: Incomplete: need additional imaging evaluation, BI-RAD 0 RECOMMENDATION: Ultrasound of the right breast. (as ordered by the clinician)
--- NOTE | 2018-01-20 14:54 | USB ---
Reason for exam: clinical finding. History: Patient is postmenopausal. Family history of breast cancer in mother and premenopausal breast cancer in aunt. US Breast RT Right breast ultrasound includes all four quadrants, the retroareolar region and axilla. Finding demonstrates a 0.5 x 0.7 x 0.2cm oval, hypoechoic lesion at 7 o'clock, dermal based at the patient's cutaneous lesion which the nurse describes as a healing boil. No other solid or cystic lesion. These results were verbally communicated with the patient and result sheet given to the patient on 01/20/18. ASSESSMENT: Benign, BI-RAD 2 RECOMMENDATION: Routine screening mammogram of both breasts in 1 year. Manage on a clinical basis with regard for the possible boil inferior right breast.
== END | disposition home or self-care (01) ==
LOC: RADMAMWWP 13:25
PROVIDERS: ATTEND Internal Medicine
DX: R92.8 Other abnormal and inconclusive findings on diagnostic imaging of breast (principal); N60.09 Solitary cyst of unspecified breast; N63.0 Unspecified lump in unspecified breast
CPT/HCPCS: 77066; 76641; G0279

== ENCOUNTER 2018-01-28 11:38 | Day surgery (SDC) | payer MEDICARE, OTHER ==
[2018-01-22 14:45] VITALS: BMI 32.7
[~2018-01-28 11:38] MED LIST: CLINDAMYCIN 900 MG in DEXTROSE 5% IN WATER 50 ML IVPB ONE; DEXAMETHASONE SOD PHOSPHATE 10 MG/ML 1 ML VIAL IV ONE; HYDROmorphone 0.5 MG/0.5 ML SYRINGE IVP PRN; LACTATED RINGERS 1,000 ML IV SCH; MIDAZOLAM 2 MG/2 ML VIAL IV PRN; MORPHINE SULFATE 4 MG/ML SYRINGE IV PRN; ONDANSETRON 4 MG/2 ML VIAL IVP ONE; ONDANSETRON 4 MG/2 ML VIAL IVP PRN
[2018-01-28] MEDS ORDERED: LIDOCAINE 1% 20 ML VIAL (10MG/ML) FOR IV START INTRADERMA ONE (12:07)
[2018-01-28] MEDS ORDERED: PROPOFOL 10 MG/ML 20 ML VIAL IV ONE (13:10)
[2018-01-28] MEDS ORDERED: MIDAZOLAM 2 MG/2 ML VIAL ONE (13:10)
[2018-01-28] MEDS ORDERED: LIDOCAINE 1% INJ 10MG/ML (20 ML MDV) ONE (13:10)
[2018-01-28] MEDS ORDERED: LACTATED RINGERS 1,000 ML IV ONE ×3 (15:01→15:17)
--- NOTE | 2018-01-28 15:04 | FL ---
Fluoroscopy INDICATION: Pain FINDINGS: Fluoroscopy time: 32 seconds. Images obtained: 2. IMPRESSIONS: 1. Documentation of fluoroscopy.
[2018-01-28] MEDS ORDERED: SENNOSIDES-DOCUSATE SODIUM 1 EACH TAB PO PRN (15:15)
[2018-01-28] MEDS ORDERED: TEMAZEPAM 15 MG CAP PO PRN (15:15)
[2018-01-28] MEDS ORDERED: ONDANSETRON 4 MG/2 ML VIAL IVP PRN (15:15)
[2018-01-28] MEDS ORDERED: hydrOXYzine PAMOATE 25 MG CAP PO PRN (15:15)
[2018-01-28] MEDS ORDERED: METOCLOPRAMIDE 5 MG/ML 2 ML VIAL IVP PRN (15:15)
[2018-01-28] MEDS ORDERED: MORPHINE SULFATE 4 MG/ML SYRINGE IVP PRN (15:15)
[2018-01-28] MEDS ORDERED: diphenhydrAMINE 25 MG CAP PO PRN (15:15)
[2018-01-28] MEDS ORDERED: HYDROcodone/APAP 10-325MG 1 EACH TAB PO PRN (15:21)
--- NOTE | 2018-01-28 15:33 | P.OP ---
Date of Procedure: 01/28/18 Preoperative Diagnosis: 1. Stage IIA adult acquired flatfoot deformity 2. Gastrocnemius contracture 3. Posterior tibial tendinitis 4. Cigarette smoker Postoperative Diagnosis: Same Procedure(s) Performed: 1. Right medializing calcaneal osteotomy 2. Right FDL tendon transfer 3. Right gastrocnemius recession 4. Application of short leg splint by physician, right leg Anesthesia: spinal Surgeon: Nicholas Carmona Corporate Safety Coordinator #1: Aniceto Giraldo Estimated Blood Loss (ml): 10 IV fluids (ml): 700 Pathology: none sent Condition: stable Disposition: PACU Indications for Procedure: The patient is a 47-year-old female with a medical history significant for smoking cigarettes. The patient is previously had surgery on her right ankle at which time she had a posterior tibial tendon debridement. She went on to have continued pain along the medial aspect of her ankle. She was initially treated by an outside physician with activity modification, NSAIDs, and orthotics. She failed over six-month of nonsurgical treatment and presented to my office to discuss treatment. Clinically the patient had a flexible stage II a adult acquired flat foot deformity with tenderness along the posterior tibial tendon. She had an MRI which showed posterior tibial tendinitis. We discussed continued nonsurgical treatment versus surgery. The patient requested surgery. She acknowledged her increased risk due to smoking and stated she accepted the higher risk of a complication and would like to proceed with surgery. I recommended surgery was a medializing calcaneal osteotomy, an FDL tendon transfer, and a gastrocnemius recession. We discussed the potential risks and complications of surgery including but not limited to risk of anesthesia, superficial infection, deep infection, delayed wound healing, damage to local blood vessels or nerves, risk of malunion of the osteotomy site, risk of nonunion of the osteotomy site, risk of symptomatically hardware, risk of under correction of her deformity, risk of over correction of her deformity, risk of symptomatically hardware, risk of decreased calf circumference, risk of chronic pain, risk of chronic swelling, risk of inability to regain preinjury level of function, risk of generalized to satisfaction with surgery, risk of need for further surgery, risk of DVT, risk of PE, and possibly loss of life or limb. The patient understands all these are the most common complications there are other less common complications possible. She also understands that due to her cigarette smoking she is at a higher risk of having a complication and was strongly encouraged to quit smoking. Verbal and written consent to go forward with surgery. Description of Procedure: The patient was identified in preoperative holding and the correct right leg was marked with my initials. I reviewed the consent form with the patient and her and all of their questions were answered. The patient was then brought back to the operating room. She was positioned on the OR table and a spinal anesthetic and preoperative antibiotics were administered. A tourniquet was applied to the proximal aspect of the right leg. The left leg was secured to the table with foam and tape. A bump was placed under the right buttock internally rotating the leg. A ramp was placed under the right leg. The right leg was then prepped and draped in the standard sterile fashion. Prior to starting surgery timeout was performed identifying the correct patient, operative extremity, and procedure. The patient's leg was then elevated, exsanguinated with an Esmarch bandage, the tourniquet was inflated to 250 mmHg. I began by outlining a skin incision for a gastroc recession over the medial distal muscle belly of the gastrocnemius 1 thumb breath posterior to the tibia. Skin incision was made with a scalpel and dissection was carried down carefully through subcu tissues tissues with tenotomy scissors. The superficial fascia was identified and incised longitudinally in line with the skin incision. I bluntly developed the interval between the gastrocnemius aponeurosis and superficial fascia. The sural nerve was found to be adherent to the aponeurosis of the distal gastrocnemius and was gently teased off with a [place] elevator. Under direct visualization the gastrocnemius aponeurosis was sharply released from lateral to medial in its entirety. After release of the gastrocnemius aponeurosis there was a significant increase in dorsiflexion of the ankle with the knee extended. The wound was then copiously irrigated. The deep subcu was reapproximated using 2-0 Vicryl. The skin was closed with 3-0 nylon horizontal mattress stitches. Attention was then turned to the calcaneus. An oblique incision was marked out over the lateral wall of the calcaneus 1 thumb breadth posterior to the fibula. Skin incision was made to 15 blade scalpel. Dissection was carried down carefully to the subcutaneous tissue with tenotomy scissors. The periosteum over the lateral wall of the calcaneus was elevated with a william elevator. C-arm was brought in to andreas out the site and orientation of the osteotomy over the lateral wall of the calcaneus. Baby Misael retractors were placed superior and inferior to the tuberosity of the calcaneus. A microsagittal saw was used to create the osteotomy from lateral to medial taking care not to plunge medially. An osteotome was used to free meaning intact bone medially. A lamina syrup mixer helper was placed to distract the soft tissue to facilitate medialization of the tuberosity. K wires were then placed from the posterior tuberosity of the calcaneus up to the osteotomy site. The tuberosity was then shifted 1 cm medial and slightly plantar and an assistant professor of communication drove the K wires across the osteotomy site. Position of the K wires was verified on the lateral image and an axial heel view was used to verify position of the K wires and the amount of medial shift. Stab incisions were then made over the K wires a drill was used to create a path in the tuberosity up to the osteotomy site for a partially- threaded 45 screw. Partially threaded 4.5 mm screws were then placed across the osteotomy generating excellent compression. Position of the screws were verified after the K wires had been removed. Attention was then turned to the medial aspect of the ankle. Her prior incision was marked out. This incision was slightly posterior but was still utilized. Skin incision was made directly over her prior scar. Dissection was carried down carefully to the posterior tibial tendon sheath. The sheath was incised longitudinally in line with the posterior tibial tendon. There is a small amount of mucinous fluid within the sheath. The posterior tibial tendon appeared to be slightly flattened with mild tendinitis but was otherwise intact. Due to the posterior tibial tendon being intact I elected to perform an FDL tendon transfer to the remaining healthy fibers of the posterior tibial tendon utilizing a Pulvertaft weave rather than a drill hole in the navicular. The posterior tibial tendon was retracted and the floor of the posterior tibial tendon sheath was incised longitudinally in line with the skin incision. The FDL tendon was identified, dissected distally and sharply released at the master knot of Gustavo. 4 stab incisions were then made in the healthy portion of the posterior tibial tendon and the FDL tendon was transferred utilizing a Pulvertaft weave. The foot was placed in plantarflexion and inversion and the FDL tendon was tightened and then sutured using 2-0 FiberWire. At this point final fluoroscopic images were taken. Both wounds were copiously irrigated. On the medial wound the posterior tibial sheath was closed with a running 2-0 Vicryl, the deep subcu was reapproximated using 2-0 Vicryl, and the skin was closed using 3-0 nylon. The lateral calcaneal osteotomy incision was closed with 2-0 Vicryl, and 3-0 nylon. The stab incisions over the heel were closed with interrupted 3-0 nylon. After all incisions were closed I verified that all instrument, sponge, and sharp counts were correct. Sterile dressing consisting of Betadine soaked Adaptic, 4 x 4, and web roll were applied. The tourniquet was let down for total tourniquet time of 64 minutes. A well-padded bulky Wallace splint was applied with the ankle in neutral. The patient was then awoken from her sedation, transferred to a gurney and brought to PACU having tolerated the procedure well. Aniceto Gautam PA-C was required as a skilled assistant professor of communication for patient positioning, surgical retraction, placement of hardware, closure of wounds, and application of splint. Plan: The patient is going to be admitted overnight for pain control. She is to remain strictly nonweightbearing on her right leg. While she is in the hospital she will be treated with Lovenox for DVT prophylaxis. She can discharge home tomorrow when her pain is adequately controlled and she passes physical therapy.
[2018-01-28] MEDS: LACTATED RINGERS 1,000 ML IV SCH (17:01)
[2018-01-28] MEDS: HYDROcodone/APAP 10-325MG 1 EACH TAB PO PRN (19:16)
[2018-01-28] MEDS: MORPHINE SULFATE 4 MG/ML SYRINGE IVP PRN ×2 (19:17→21:17)
[2018-01-28] MEDS ORDERED: PRAZOSIN 1 MG CAP PO SCH (21:15)
[2018-01-28] MEDS: CLINDAMYCIN 900 MG in DEXTROSE 5% IN WATER 50 ML IVPB SCH ×2 (21:18)
[2018-01-28] MEDS: ASPIRIN 325 MG TAB PO SCH (21:18)
[2018-01-28] MEDS: busPIRone HCl 10 MG TAB PO SCH (22:39)
[2018-01-28] MEDS: DIVALPROEX 500 MG TABLET.DR PO SCH (22:39)
[2018-01-28] MEDS: QUEtiapine 100 MG TAB PO SCH (22:40)
[2018-01-29] MEDS: MORPHINE SULFATE 4 MG/ML SYRINGE IVP PRN ×3 (00:29→07:40)
[2018-01-29] MEDS: LACTATED RINGERS 1,000 ML IV SCH (01:15)
[2018-01-29 01:29] VITALS: RESP 16
[2018-01-29] MEDS: HYDROcodone/APAP 10-325MG 1 EACH TAB PO PRN ×2 (02:38→09:17)
[2018-01-29] MEDS: CLINDAMYCIN 900 MG in DEXTROSE 5% IN WATER 50 ML IVPB SCH ×2 (04:09)
[2018-01-29] MEDS: ASPIRIN 325 MG TAB PO SCH (07:44)
[2018-01-29] MEDS: busPIRone HCl 10 MG TAB PO SCH (07:45)
[2018-01-29] MEDS: DIVALPROEX 500 MG TABLET.DR PO SCH (07:46)
[2018-01-29] MEDS: QUEtiapine 100 MG TAB PO SCH (07:48)
[2018-01-29] MEDS ORDERED: CHOLECALCIFEROL 1,000 UNIT TAB PO SCH (09:00)
[2018-01-29] MEDS ORDERED: METOPROLOL TARTRATE 50 MG TAB PO SCH (09:00)
[2018-01-29] MEDS ORDERED: DULoxetine HCL 60 MG CAPSULE.DR PO SCH (09:00)
--- NOTE | 2018-01-29 09:18 | P.DS ---
Providers Expected date of discharge: 01/29/18 Attending physician: Nicholas Carmona Consults: 01/28/18 15:15 Consult Physician Routine Consulting Provider: Barb Starkey Consult Reason/Comments: post op medical management Do you want consulting provider notified?: Yes Primary care physician: Humza Willis Charbal - Discharge Diagnosis(es) (1) Acquired pes planovalgus Patient was admitted to the OR on 01/29/2018 to undergo Right medializing calcaneal osteotomy, Right FDL tendon transfer and Right gastrocnemius recession. She had failed conservative measures as an outpatient and desired to proceed with elective surgery after given informed consent She underwent the above procedure which he tolerated well without complication. Postoperative hospital course has remained without complication. On day of discharge she is afebrile, vital signs stable, labs within acceptable ranges, tolerating by mouth meds and diet, voiding without difficulty, positive flatus, denies abdominal pain or calf pain, pain is controlled on oral pain medication and has no new complaints. Wound is benign, neurovascular status is intact, calf is soft and nontender, abdomen soft and nontender. Review of systems is negative for numbness, tingling, fever, chills, chest pain, shortness breath, nausea, vomiting, dizziness, headaches, slurred speech or other Current Visit: Yes Status: Acute Priority: Medium Procedures: 1. Right medializing calcaneal osteotomy 2. Right FDL tendon transfer 3. Right gastrocnemius recession Patient Condition at Discharge: Good Plan - Discharge Summary Discharge Rx Participant: Yes New Discharge Prescriptions: New Aspirin 325 mg PO BID #60 tab Docusate [Colace] 100 mg PO BID #60 capsule No Action busPIRone HCL [Buspar] 30 mg PO BID Prazosin HCl [Minipress] 4 mg PO HS QUEtiapine FUMARATE [Seroquel Xr] 600 mg PO HS HYDROcodone/APAP 7.5-325MG [[place] 7.5-325] 1 tab PO TID Rivaroxaban [Xarelto] 20 mg PO 1800 Metoprolol Tartrate [Lopressor] 50 mg PO QAM Ibuprofen [Motrin] 800 mg PO TID PRN PRN Reason: Pain DULoxetine HCL [Cymbalta] 120 mg PO DAILY Cholecalciferol [Vitamin D3] 3,000 unit PO DAILY Divalproex Sodium [Depakote] 500 mg PO BID Discharge Medication List busPIRone HCL [Buspar] 30 mg PO BID 07/21/14 [History] Prazosin HCl [Minipress] 4 mg PO HS 11/07/16 [History] DULoxetine HCL [Cymbalta] 120 mg PO DAILY 06/05/17 [History] HYDROcodone/APAP 7.5-325MG [[place] 7.5-325] 1 tab PO TID 06/05/17 [History] Ibuprofen [Motrin] 800 mg PO TID PRN 06/05/17 [History] Metoprolol Tartrate [Lopressor] 50 mg PO QAM 06/05/17 [History] QUEtiapine FUMARATE [Seroquel Xr] 600 mg PO HS 06/05/17 [History] Rivaroxaban [Xarelto] 20 mg PO 1800 06/05/17 [History] Cholecalciferol [Vitamin D3] 3,000 unit PO DAILY 01/22/18 [History] Divalproex Sodium [Depakote] 500 mg PO BID 01/22/18 [History] Aspirin 325 mg PO BID #60 tab 01/28/18 [Rx] Docusate [Colace] 100 mg PO BID #60 capsule 01/28/18 [Rx] Follow up Appointment(s)/Referral(s): Ender Ching MD [Primary Care Provider] - 1 Week Nicohlas Carmona MD [Medical Doctor] - 10 Days Activity/Diet/Wound Care/Special Instructions: Maintain splint, keep clean and dry elevate leg Take meds as directed Non weightbearing F/U with Dr. Carmona in office Discharge Disposition: HOME SELF-CARE
[2018-01-29 09:44] VITALS: BP 117/56; PULSE 84; TEMP 97.8
== END 2018-01-29 12:10 | disposition home or self-care (01) ==
LOC: OR 11:38 → 3SUR 15:04 → OR 01-29 12:10
PROVIDERS: ATTEND Orthopaedic Surgery
DX: M21.41 Flat foot [pes planus] (acquired), right foot (principal); M76.821 Posterior tibial tendinitis, right leg; F17.210 Nicotine dependence, cigarettes, uncomplicated; M62.461 Contracture of muscle, right lower leg; I48.91 Unspecified atrial fibrillation; I10 Essential (primary) hypertension; M79.7 Fibromyalgia; F32.9 Major depressive disorder, single episode, unspecified; R56.9 Unspecified convulsions; Z79.1 Long term (current) use of non-steroidal anti-inflammatories (NSAID); Z79.01 Long term (current) use of anticoagulants; Z79.899 Other long term (current) drug therapy; Z88.0 Allergy status to penicillin; Z88.8 Allergy status to other drugs, medicaments and biological substances; Z79.891 Long term (current) use of opiate analgesic
CPT/HCPCS: 97161; 73650; 27687; 28300; 27691; C1713; J2270 ×2; J1100; J2405

== ENCOUNTER → 2018-08-07 | Outpatient (CLI) | payer MEDICARE, OTHER ==
--- NOTE | 2018-08-07 14:21 | CT ---
EXAMINATION TYPE: CT chest wo con DATE OF EXAM: 08/07/2018 COMPARISON: None HISTORY: chest pain, contusion CT DLP: 926.9 mGycm High-resolution noncontrast CT of the chest was performed with the patient in the prone and supine po sitions. Lung and mediastinal window settings are submitted. The lungs appear to be well-aerated. I do not see evidence for fibrotic change. There is no eviden ce for bronchiectasis, groundglass infiltrate, nodule or mass. No pleural effusion is identified. I do not see evidence for hilar or mediastinal mass or adenopathy. IMPRESSION: No significant abnormality is seen. Correlate clinically.
== END | disposition home or self-care (01) ==
LOC: RADCTMAIN 13:49
PROVIDERS: ATTEND Internal Medicine
DX: S20.219A Contusion of unspecified front wall of thorax, initial encounter (principal); S00.03XA Contusion of scalp, initial encounter; R07.9 Chest pain, unspecified; Z88.0 Allergy status to penicillin; Z88.8 Allergy status to other drugs, medicaments and biological substances
CPT/HCPCS: 71250

== ENCOUNTER → 2018-12-02 | Outpatient (CLI) | payer MEDICARE, OTHER ==
--- NOTE | 2018-12-02 11:08 | FL ---
EXAMINATION TYPE: FL barium swallow DATE OF EXAM: 12/02/2018 CLINICAL HISTORY: Prior history of hiatal hernia repair surgery twice last 3-4 years ago with dysphag ia and reflux-like symptoms over last year increasing in severity recently TECHNIQUE: A single contrast esophagram is performed utilizing barium. A total of 34 seconds of flu oroscopic time was utilized during procedure. 33 spot images are saved during procedure. COMPARISON: None FINDINGS: The esophagus shows normal motility and emptying into the stomach. Mild dysmotility during drinking in in prone position. No evidence of recurrent hiatal hernia or stricture noted. No divertic ulum is present. No significant gastroesophageal reflux was seen during real time performance of this study. IMPRESSION: No obvious mass or stricture. No recurrent hiatal hernia.
== END ==
LOC: RADFLWHC 10:12
PROVIDERS: ATTEND Surgery
DX: K21.9 Gastro-esophageal reflux disease without esophagitis (principal); R13.10 Dysphagia, unspecified
CPT/HCPCS: 74220

== ENCOUNTER 2018-12-14 06:57 | Day surgery (SDC) | payer MEDICARE, OTHER ==
[2018-12-04 14:45] VITALS: BMI 32.2
[~2018-12-14 06:57] MED LIST changes: -CLINDAMYCIN 900 MG in DEXTROSE 5% IN WATER 50 ML IVPB ONE; -DEXAMETHASONE SOD PHOSPHATE 10 MG/ML 1 ML VIAL IV ONE; -HYDROmorphone 0.5 MG/0.5 ML SYRINGE IVP PRN; +LIDOCAINE 1% 20 ML VIAL (10MG/ML) FOR IV START INTRADERMA PRN; -MIDAZOLAM 2 MG/2 ML VIAL IV PRN; -MORPHINE SULFATE 4 MG/ML SYRINGE IV PRN; -ONDANSETRON 4 MG/2 ML VIAL IVP ONE; -ONDANSETRON 4 MG/2 ML VIAL IVP PRN
[2018-12-14 07:20] VITALS: TEMP 97.6
[2018-12-14] MEDS ORDERED: LACTATED RINGERS 1,000 ML IV ONE ×2 (07:21)
[2018-12-14] MEDS ORDERED: LIDOCAINE 1% INJ 10MG/ML (20 ML MDV) ONE (07:40)
[2018-12-14] MEDS ORDERED: PROPOFOL 10 MG/ML 20 ML VIAL IV ONE (07:40)
[2018-12-14] MEDS ORDERED: MIDAZOLAM 2 MG/2 ML VIAL ONE (07:40)
--- NOTE | 2018-12-14 08:00 | P.GSHP ---
History of Present Illness H&P Date: 12/14/18 Chief Complaint: GERD, dysphagia Supporting female who's had complaints of GERD and dysphagia. Patient appears esophagram shows no evidence of any reflux or esophageal obstruction, there is no evidence of hiatal hernia.. She presents today for EGD. Past Medical History Past Medical History: Atrial Fibrillation, Cancer, Fibromyalgia, GERD/Reflux, Hypertension, Osteoarthritis (OA), Seizure Disorder Additional Past Medical History / Comment(s): LAST SEIZURE 2 YRS AGO- APPROX 2016, BACK PAIN, HX OF MELANOMA. History of Any Multi-Drug Resistant Organisms: None Reported Past Surgical History: Hernia Repair, Orthopedic Surgery, Tubal Ligation Additional Past Surgical History / Comment(s): LAURA FUNDOPLICATION, Major R foot surgery in January 2018 with screws and plates. EGD. COLONOSCOPY. RT KNEE SX TO REPAIR TENDON. LT KNEE SCOPE. BILAT FOOT SX CHILD. REVISION OF LAP. LAURA 01/11/16 Past Anesthesia/Blood Transfusion Reactions: No Reported Reaction Smoking Status: Current every day smoker - Past Family History Mother Family Medical History: Cancer Additional Family Medical History / Comment(s): Brain and Lung. Medications and Allergies Home Medications Medication Instructions Recorded Confirmed Type busPIRone HCL [Buspar] 30 mg PO BID 07/21/14 12/10/18 History Prazosin HCl [Minipress] 4 mg PO HS 11/07/16 12/10/18 History DULoxetine HCL [Cymbalta] 120 mg PO DAILY 06/05/17 12/10/18 History Metoprolol Tartrate [Lopressor] 50 mg PO QAM 06/05/17 12/10/18 History QUEtiapine FUMARATE [Seroquel Xr] 600 mg PO HS 06/05/17 12/10/18 History Rivaroxaban [Xarelto] 20 mg PO 1800 06/05/17 12/10/18 History Cholecalciferol [Vitamin D3] 3,000 unit PO DAILY 01/22/18 12/10/18 History Divalproex Sodium [Depakote] 500 mg PO BID 01/22/18 12/10/18 History Allergies Allergy/AdvReac Type Severity Reaction Status Date / Time Fish Containing Products Allergy Rash/Hives Verified 12/10/18 14:30 [Fish] Penicillins Allergy Anaphylaxis Verified 12/10/18 14:30 shellfish derived [Shellfish] Allergy Rash/Hives Verified 12/10/18 14:30 Fvyvjtn-Ocr-Buu Reductase Allergy Rash/Hives Verified 12/10/18 14:30 Inhibitor venom-honey bee Allergy Anaphylaxis Verified 12/10/18 14:30 [bee venom (honey bee)] Surgical - Exam Vital Signs Temp Pulse Resp BP Pulse Ox 97.6 F 60 18 104/61 94 L 12/14/18 07:18 12/14/18 07:18 12/14/18 07:18 12/14/18 07:18 12/14/18 07:18 - General well developed, well nourished, no distress - Eyes PERRL - ENT normal pinna - Neck no masses - Respiratory normal expansion - Cardiovascular Rhythm: regular - Abdomen Abdomen: soft, non tender Assessment and Plan Assessment: GERD, dysphagia. We'll perform EGD.
--- NOTE | 2018-12-14 08:10 | P.OP ---
Date of Procedure: 12/14/18 Preoperative Diagnosis: GERD Postoperative Diagnosis: Esophagitis Procedure(s) Performed: EGD Anesthesia: MAC Surgeon: Selvin Barrios Pathology: other (Antrum, esophagus) Condition: stable Disposition: PACU Description of Procedure: The patient's placed on the endoscopy table in the lateral position. She received IV sedation. The gastroscope placed oropharynx passed into the esophagus and into the stomach. Scope was then placed through the pylorus. The first and second portion of the duodenum appeared normal. Scope was then brought back the antrum and this was mildly inflamed. A biopsies performed. The scope was then retroflexed and the remainder some appeared normal. There appeared to be a small sliding hiatal hernia. The GE junction was at 38 size. The distal esophagus appeared inflamed a biopsies performed. The proximal esophagus appeared normal. The scope was withdrawn for patient.
[2018-12-14 08:30] VITALS: BP 102/72; PULSE 98; RESP 16
== END 2018-12-14 08:56 | disposition home or self-care (01) ==
LOC: ORWHC2ENDO 06:57
PROVIDERS: ATTEND Surgery
DX: K29.50 Unspecified chronic gastritis without bleeding (principal); K21.0 Gastro-esophageal reflux disease with esophagitis; K44.9 Diaphragmatic hernia without obstruction or gangrene; F17.210 Nicotine dependence, cigarettes, uncomplicated; G40.909 Epilepsy, unspecified, not intractable, without status epilepticus; I10 Essential (primary) hypertension; I48.91 Unspecified atrial fibrillation; F32.9 Major depressive disorder, single episode, unspecified; F41.9 Anxiety disorder, unspecified; F43.10 Post-traumatic stress disorder, unspecified; M19.90 Unspecified osteoarthritis, unspecified site; M79.7 Fibromyalgia; Z85.820 Personal history of malignant melanoma of skin; Z88.0 Allergy status to penicillin; Z88.8 Allergy status to other drugs, medicaments and biological substances; Z91.030 Bee allergy status; Z91.013 Allergy to seafood; Z79.01 Long term (current) use of anticoagulants; Z79.899 Other long term (current) drug therapy
CPT/HCPCS: 81025; 88305; 43239; J2250; J2001; J2704

== ENCOUNTER → 2019-01-08 | Outpatient (CLI) | payer MEDICARE, OTHER ==
[2019-01-08 13:10] LABS: HCT 38.5 % (34.0-46.0); HGB 12.7 gm/dL (11.4-16.0); MCH 33.4 pg (25.0-35.0); MCHC 32.8 g/dL (31.0-37.0); MCV 101.6 fL (80.0-100.0); Macrocytosis Slight; Mean Platelet Volume 9.7; Platelet Count 152 k/uL (150-450); RBC 3.79 m/uL (3.80-5.40); RDW 13.1 % (11.5-15.5)
[2019-01-08 13:25] LABS: Anion Gap 5 mmol/L; Blood Urea Nitrogen 13 mg/dL (7-17); Carbon Dioxide 28 mmol/L (22-30); Chloride 108 mmol/L (98-107); Potassium 4.2 mmol/L (3.5-5.1); Sodium 141 mmol/L (137-145)
[2019-01-08 13:28] LABS: Partial Thromboplastin Time 25.8 sec (22.0-30.0); Prothrombin Time 10.5 sec (9.0-12.0)
== END ==
LOC: LABPAT 11:42
PROVIDERS: ATTEND Internal Medicine
DX: Z01.818 Encounter for other preprocedural examination (principal); Z01.812 Encounter for preprocedural laboratory examination
CPT/HCPCS: 36415; 80051; 82565; 82607; 82746; 84520; 85027; 85610; 85730; 93005

== ENCOUNTER 2019-01-15 07:29 | Day surgery (SDC) | payer MEDICARE, OTHER ==
[~2019-01-15 07:29] MED LIST changes: +CLINDAMYCIN 900 MG in DEXTROSE 5% IN WATER 50 ML IVPB ONE; +DEXAMETHASONE SOD PHOSPHATE 10 MG/ML 1 ML VIAL IV ONE; +HEPARIN SODIUM,PORCINE 5,000 UNIT/ML 1 ML VIAL SQ ONE; +LEVOFLOXACIN 500MG-D5W PMX 500 MG in DEXTROSE/WATER 1 100ML.BAG IVPB ONE; -LIDOCAINE 1% 20 ML VIAL (10MG/ML) FOR IV START INTRADERMA PRN; +MIDAZOLAM (PF) 2 MG/2 ML VIAL IV PRN; +ONDANSETRON 4 MG/2 ML VIAL IVP ONE; +SCOPOLAMINE 1.5MG/72HR PATCH TRANSDERM ONE
[2019-01-15] MEDS ORDERED: LIDOCAINE 1% 20 ML VIAL (10MG/ML) FOR IV START INTRADERMA ONE (07:52)
--- NOTE | 2019-01-15 07:54 | P.GSHP ---
History of Present Illness H&P Date: 01/15/19 Chief Complaint: GERD This is a 48-year-old female who's had issues with GERD.The patient has had long -standing problems with reflux esophagitis. The patient underwent recent EGD is found have evidence of esophagitis. Patient has been well informed on the procedure of laparoscopic Laura fundoplication. The patient is aware the risk of the conversion to the open procedure, risk of injury to the stomach, liver and spleen. The patient is also a risk of recurrent GERD and dysphagia symptoms. The patient understands there is a postoperative diet of full liquids for 2 weeks after surgery. Past Medical History Past Medical History: Atrial Fibrillation, Cancer, Fibromyalgia, GERD/Reflux, Hypertension, Osteoarthritis (OA), Seizure Disorder Additional Past Medical History / Comment(s): LAST SEIZURE 2 YRS AGO- APPROX 2016, BACK PAIN, HX OF MELANOMA. History of Any Multi-Drug Resistant Organisms: None Reported Past Surgical History: Hernia Repair, Orthopedic Surgery, Tubal Ligation Additional Past Surgical History / Comment(s): scheduled to remove hardware rt foot 01-12-19. LAURA FUNDOPLICATION. EGD. COLONOSCOPY. RT KNEE SX TO REPAIR TENDON. LT KNEE SCOPE,EGD. BILAT FOOT SX CHILD. REVISION OF LAP. LAURA Past Anesthesia/Blood Transfusion Reactions: No Reported Reaction Additional Past Anesthesia/Blood Transfusion Reaction / Comment(s): no hx blood transfusion Past Psychological History: Anxiety, Depression, PTSD Smoking Status: Current every day smoker Past Alcohol Use History: Occasional Additional Past Alcohol Use History / Comment(s): HAS BEEN SMOKING SINCE AGE 16 , SMOKES 3/4 PPD. HAS BEEN SMOKING FOR 30 YRS. Past Drug Use History: None Reported - Past Family History Mother Family Medical History: Cancer Additional Family Medical History / Comment(s): Brain and Lung. Medications and Allergies Home Medications Medication Instructions Recorded Confirmed Type busPIRone HCL [Buspar] 30 mg PO BID 07/21/14 01/06/19 History Prazosin HCl [Minipress] 4 mg PO HS 11/07/16 01/06/19 History DULoxetine HCL [Cymbalta] 120 mg PO QAM 06/05/17 01/06/19 History Metoprolol Tartrate [Lopressor] 50 mg PO QAM 06/05/17 01/06/19 History QUEtiapine FUMARATE [Seroquel Xr] 600 mg PO HS 06/05/17 01/06/19 History Rivaroxaban [Xarelto] 20 mg PO 1800 06/05/17 01/06/19 History Divalproex Sodium [Depakote] 500 mg PO BID 01/22/18 01/06/19 History HYDROcodone/APAP 7.5-325MG [[place] 1 tab PO Q4H PRN 3 Days #18 tab 12/14/1801/15 Rx 7.5-325] Sucralfate [Carafate] 1 gm PO BID #60 tab 12/14/18 01/15/19 Rx Omeprazole 40 mg PO QAM 01/06/19 01/06/19 History Allergies Allergy/AdvReac Type Severity Reaction Status Date / Time Fish Containing Products Allergy Rash/Hives Verified 01/06/19 15:03 [Fish] Penicillins Allergy Anaphylaxis Verified 01/06/19 15:03 shellfish derived [Shellfish] Allergy Rash/Hives Verified 01/06/19 15:03 Qppnamq-Mnc-Mon Reductase Allergy Rash/Hives Verified 01/06/19 15:03 Inhibitor venom-honey bee Allergy Anaphylaxis Verified 01/06/19 15:03 [bee venom (honey bee)] Surgical - Exam Vital Signs Temp Pulse Resp BP Pulse Ox 97.6 F 101 H 18 115/78 98 01/15/19 07:43 01/15/19 07:43 01/15/19 07:43 01/15/19 07:43 01/15/19 07:43 - General well developed, well nourished, no distress - Eyes PERRL - ENT normal pinna - Neck no masses - Respiratory normal expansion - Cardiovascular Rhythm: regular - Abdomen Abdomen: soft, non tender Assessment and Plan Assessment: GERD. We'll perform laparoscopic Laura fundoplication.
[2019-01-15] MEDS ORDERED: SUCCINYLCHOLINE CHLORIDE 100 MG/5 ML SYR IV ONE (08:02)
[2019-01-15] MEDS ORDERED: PHENYLEPHRINE-0.9% NACL SYG 1 MG/10 ML SYRINGE ONE (08:02)
[2019-01-15] MEDS ORDERED: LIDOCAINE 1% INJ 10MG/ML (20 ML MDV) ONE (08:02)
[2019-01-15] MEDS ORDERED: HYDROmorphone (PF) 1 MG/ML ONE (08:02)
[2019-01-15] MEDS ORDERED: fentaNYL (PF) 50 MCG/ML 2 ML AMP ONE (08:02)
[2019-01-15] MEDS ORDERED: ePHEDrine SULFATE/0.9% NACL/PF 50 MG/5 ML SYRINGE IV ONE (08:02)
[2019-01-15] MEDS ORDERED: ROCURONIUM BROMIDE 10 MG/ML 10 ML VIAL IV ONE (08:02)
[2019-01-15] MEDS ORDERED: MIDAZOLAM 2 MG/2 ML VIAL ONE (08:02)
[2019-01-15] MEDS ORDERED: GLYCOPYRROLATE 0.2 MG/ML 2 ML VIAL ONE (08:02)
[2019-01-15] MEDS ORDERED: NEOSTIGMINE 1 MG/ML 10 ML VIAL ONE (08:02)
[2019-01-15] MEDS ORDERED: PROPOFOL 10 MG/ML 20 ML VIAL IV ONE (08:02)
[2019-01-15] MEDS ORDERED: BUPIVACAIN-EPI 0.5%-1:200,000 30 ML VIAL SQ ONE (08:36)
[2019-01-15] MEDS ORDERED: ONDANSETRON 4 MG/2 ML VIAL IVP PRN (09:58)
[2019-01-15] MEDS: HYDROmorphone 0.5 MG/0.5 ML SYRINGE IVP PRN ×2 (10:22→10:28)
--- NOTE | 2019-01-15 10:25 | P.OP ---
Date of Procedure: 01/15/19 Preoperative Diagnosis: GERD Postoperative Diagnosis: GERD Recurrent hiatal hernia Procedure(s) Performed: Laparoscopic dislocation Laboratory lyse adhesions Anesthesia: COLLEEN Surgeon: Selvin Barrios Estimated Blood Loss (ml): 30 Pathology: none sent Condition: stable Disposition: PACU Description of Procedure: The patient's placed on the operative table in the supine position. She received general anesthesia. She was then placed in dorsal lithotomy position. Her abdomen was prepped and draped in usual sterile fashion. The skin incision sites were anesthetized 1% local Xylocaine. Using a 11 blade the skin was incised in the left periumbilical area. And then using a 5 mm optical trocar the pelvic cavity is entered under direct visualization. The abdomen was then insufflated. After adequate insufflation the laparoscope was placed into the. Cavity. The patient was positioned in the reverse Trendelenburg position. The left lateral lobe liver was retracted via a 5 mm trocar placed in the right epigastric position. Then a 8 mm trocar was placed in the left epigastric position and then 5 mm trochars were placed in the right and left lateral position. The stomach was visualized. There were adhesions between the stomach and liver. These were lysed with sharp dissection. The adhesions to the stomach and diaphragm were also lysed with sharp dissection. The pineda was visualized. There was a moderate size hiatal hernia. Using the Harmonic scissors the pineda was completely dissected. The previous fundal plication wrap was taken down with sharp dissection. He received by preserve the gastric wall. The pineda was repaired using 2-0 Ethibond suture. A 58-[place] bougie dilator was placed into the esophagus by the [employer] and the pineda was repaired over top of this. Next the posterior 180 wrap was left intact. There is no evidence of any injury to the stomach liver or spleen. The abdomen was irrigated. There is no significant bleeding seen. The trochars withdrawn. The skin was closed interrupted 3-0 Monocryl suture. Dermabond was applied. Patient sent to recovery in stable condition.
[2019-01-15] MEDS ORDERED: fentaNYL (PF) 50 MCG/ML 2 ML AMP IVP ONE ×2 (10:43→10:55)
[2019-01-15 11:54] LABS: Basophils % (A) 0 %; Eosinophils # (A) 0.1 k/uL (0-0.7); Eosinophils % (A) 1 %; HCT 39.7 % (34.0-46.0); HGB 12.8 gm/dL (11.4-16.0); Lymphocytes % (A) 10 %; MCH 32.2 pg (25.0-35.0); MCHC 32.3 g/dL (31.0-37.0); MCV 99.8 fL (80.0-100.0); Mean Platelet Volume 9.1; Monocytes # (A) 0.2 k/uL (0-1.0); Monocytes % (A) 2 %; Neutrophils # (A) 9.1 k/uL (1.3-7.7); Neutrophils % (A) 87 %; Platelet Count 148 k/uL (150-450); RBC 3.97 m/uL (3.80-5.40); RDW 12.8 % (11.5-15.5); WBC 10.5 k/uL (3.8-10.6)
[2019-01-15] MEDS: METOCLOPRAMIDE 5 MG/ML 2 ML VIAL IVP SCH ×2 (12:16→18:07)
[2019-01-15] MEDS: DIVALPROEX 500 MG TABLET.DR PO SCH ×2 (12:25→21:19)
[2019-01-15] MEDS: QUEtiapine 100 MG TAB PO SCH ×2 (12:52→21:19)
[2019-01-15] MEDS: METOPROLOL TARTRATE 50 MG TAB PO SCH (12:54)
[2019-01-15 14:41] VITALS: BMI 31.9
--- NOTE | 2019-01-15 15:35 | FL ---
EXAMINATION TYPE: FL esophagus cervic/pharynx DATE OF EXAM: 01/15/2019 HISTORY: Dysphasia COMPARISON: 12/02/2018 TECHNIQUE: A angle contrast esophagram is performed. FINDINGS: 29 seconds of fluoroscopy and 5 images are submitted. No evidence of extravasation. There is mild del ay at the GE junction. Small amount of free intraperitoneal air is suspected likely postsurgical and there is basilar suspected postoperative atelectasis. IMPRESSION: 1. no evidence of extravasation there is mild delay at the level the GE junction.
[2019-01-15] MEDS: D5-0.45% NACL WITH KCL 20MEQ/L 1,000 ML IV SCH (17:01)
[2019-01-15] MEDS: CLINDAMYCIN 900 MG in DEXTROSE 5% IN WATER 50 ML IVPB SCH ×2 (17:01)
[2019-01-15] MEDS: HYDROmorphone 1 MG/ML 1 ML SYRINGE IVP PRN ×2 (17:10→21:29)
[2019-01-15] MEDS ORDERED: RIVAROXABAN 20 MG TAB PO SCH (18:00)
[2019-01-15] MEDS ORDERED: PRAZOSIN 1 MG CAP PO SCH (21:00)
[2019-01-15] MEDS: busPIRone HCl 10 MG TAB PO SCH (21:18)
[2019-01-15] MEDS: SUCRALFATE 1 GM TAB PO SCH (21:20)
[2019-01-15] MEDS: FAMOTIDINE 20 MG/2 ML VIAL IV SCH (21:20)
[2019-01-16] MEDS: METOCLOPRAMIDE 5 MG/ML 2 ML VIAL IVP SCH ×2 (00:04→06:50)
[2019-01-16] MEDS: CLINDAMYCIN 900 MG in DEXTROSE 5% IN WATER 50 ML IVPB SCH ×2 (00:04)
[2019-01-16 02:22] VITALS: TEMP 98.1
[2019-01-16] MEDS: D5-0.45% NACL WITH KCL 20MEQ/L 1,000 ML IV SCH ×2 (04:09→08:36)
[2019-01-16] MEDS: HYDROmorphone 1 MG/ML 1 ML SYRINGE IVP PRN ×2 (04:10→08:46)
[2019-01-16] MEDS: DIVALPROEX 500 MG TABLET.DR PO SCH (08:39)
[2019-01-16] MEDS: busPIRone HCl 10 MG TAB PO SCH (08:39)
[2019-01-16] MEDS: FAMOTIDINE 20 MG/2 ML VIAL IV SCH (08:39)
[2019-01-16] MEDS: SUCRALFATE 1 GM TAB PO SCH (08:40)
[2019-01-16] MEDS: METOPROLOL TARTRATE 50 MG TAB PO SCH (08:40)
[2019-01-16] MEDS: QUEtiapine 100 MG TAB PO SCH (08:40)
[2019-01-16 08:52] VITALS: BP 100/67; PULSE 97; RESP 16
[2019-01-16] MEDS ORDERED: PANTOPRAZOLE 40 MG TABLET PO SCH (09:00)
[2019-01-16] MEDS ORDERED: DULoxetine HCL 60 MG CAPSULE.DR PO SCH (09:00)
[2019-01-16] MEDS ORDERED: ENOXAPARIN 40 MG/0.4 ML SYRINGE SQ SCH (09:00)
--- NOTE | 2019-01-16 09:02 | P.PN ---
Subjective Progress Note Date: 01/16/19 Principal diagnosis: GERD Patient doing well today. Has minimal pain. Tolerating liquids. Hoping to go home today. Objective - Vital Signs Vital signs: Vital Signs Temp 98.1 F 01/16/19 04:00 Pulse 97 01/16/19 07:45 Resp 16 01/16/19 07:45 BP 100/67 01/16/19 07:45 Pulse Ox 96 01/16/19 07:45 Intake & Output 01/15/19 01/16/19 01/16/19 18:59 06:59 18:59 Intake Total 1006 1600 Output Total 650 1600 500 Balance 356 0 -500 Weight 92.533 kg Intake: IV 1006 Oral 0 1600 Output: Urine 600 1600 500 Estimated Blood Loss 50 Other: Voiding Method Toilet Toilet # Voids 1 1 - Exam Abdomen: Soft, nondistended, mild tenderness - Labs CBC & Chem 7: 01/15/19 11:39 Labs: Abnormal Lab Results - Last 24 Hours (Table) 01/15/19 Range/Units 11:39 Plt Count 148 L (150-450) k/uL Neutrophils # 9.1 H (1.3-7.7) k/uL Assessment and Plan (1) GERD (gastroesophageal reflux disease) Narrative/Plan: Patient doing well today. Continue liquid diet. We'll discharge. Current Visit: No Status: Acute Code(s): K21.9 - GASTRO-ESOPHAGEAL REFLUX DISEASE WITHOUT ESOPHAGITIS SNOMED Code(s): 031624126
[2019-01-16] MEDS ORDERED: RIVAROXABAN 20 MG TAB PO SCH (18:00)
== END 2019-01-16 10:45 | disposition home or self-care (01) ==
LOC: OR 07:29 → 6PED 10:15 → OR 01-16 10:45
PROVIDERS: ATTEND Surgery
DX: K44.9 Diaphragmatic hernia without obstruction or gangrene (principal); K21.0 Gastro-esophageal reflux disease with esophagitis; F17.210 Nicotine dependence, cigarettes, uncomplicated; F32.9 Major depressive disorder, single episode, unspecified; F43.10 Post-traumatic stress disorder, unspecified; G40.909 Epilepsy, unspecified, not intractable, without status epilepticus; I10 Essential (primary) hypertension; I48.91 Unspecified atrial fibrillation; M19.90 Unspecified osteoarthritis, unspecified site; M79.7 Fibromyalgia; R47.02 Dysphasia; Z85.820 Personal history of malignant melanoma of skin; Z88.0 Allergy status to penicillin; Z88.8 Allergy status to other drugs, medicaments and biological substances; Z79.899 Other long term (current) drug therapy; Z91.030 Bee allergy status; Z91.013 Allergy to seafood
CPT/HCPCS: 85025; 74210; 43281; J1644; J1100; J2765 ×2; J2405; J1956; J3010; J1170 ×3; Q9967

== ENCOUNTER 2019-08-12 07:56 | Day surgery (SDC) | payer MEDICARE, OTHER ==
[2019-08-10 11:19] VITALS: BMI 32.7
[~2019-08-12 07:56] MED LIST changes: +GENTAMICIN 380 MG in SODIUM CHLORIDE 0.9% 100 ML IVPB ONE; -LEVOFLOXACIN 500MG-D5W PMX 500 MG in DEXTROSE/WATER 1 100ML.BAG IVPB ONE; -MIDAZOLAM (PF) 2 MG/2 ML VIAL IV PRN; -SCOPOLAMINE 1.5MG/72HR PATCH TRANSDERM ONE
[2019-08-12] MEDS ORDERED: LIDOCAINE 1% 20 ML VIAL (10MG/ML) FOR IV START INTRADERMA ONE (08:35)
--- NOTE | 2019-08-12 08:36 | P.GSHP ---
History of Present Illness H&P Date: 08/12/19 Chief Complaint: Right upper quadrant pain Is a 49-year-old female said complaints of chronic right upper quadrant pain and nausea. Patient presents today for laparoscopic ostectomy for chronic cholecystitis. Past Medical History Past Medical History: Atrial Fibrillation, Cancer, Fibromyalgia, GERD/Reflux, Hyperlipidemia, Hypertension, Osteoarthritis (OA), Seizure Disorder Additional Past Medical History / Comment(s): LAST SEIZURE - APPROX 2016, BACK PAIN, HX OF MELANOMA. ENVIRONMENTAL ALLERGIES History of Any Multi-Drug Resistant Organisms: None Reported Past Surgical History: Hernia Repair, Orthopedic Surgery, Tubal Ligation Additional Past Surgical History / Comment(s): HARDWARE WAS REMOVED RT FOOT. LAURA FUNDOPLICATION. EGD. COLONOSCOPY. RT KNEE SX TO REPAIR TENDON. LT KNEE SCOPE,EGD. BILAT FOOT SX CHILD. REVISION OF LAP. LAURA Past Anesthesia/Blood Transfusion Reactions: No Reported Reaction Additional Past Anesthesia/Blood Transfusion Reaction / Comment(s): no hx blood transfusion Smoking Status: Current every day smoker - Past Family History Mother Family Medical History: Cancer Additional Family Medical History / Comment(s): Brain and Lung. Medications and Allergies Home Medications Medication Instructions Recorded Confirmed Type busPIRone HCL [Buspar] 30 mg PO BID 07/21/14 08/10/19 History Prazosin HCl [Minipress] 5 mg PO HS 11/07/16 08/10/19 History QUEtiapine FUMARATE [Seroquel Xr] 300 mg PO HS 06/05/17 08/10/19 History Rivaroxaban [Xarelto] 20 mg PO 1800 06/05/17 08/10/19 History Divalproex Sodium [Depakote] 500 mg PO BID 01/22/18 08/10/19 History Aspirin 325 mg PO DAILY 08/10/19 08/10/19 History Cyclobenzaprine [Flexeril] 10 mg PO TID PRN 08/10/19 08/10/19 History Loratadine [Claritin] 10 mg PO DAILY 08/10/19 08/10/19 History Sertraline [Zoloft] 100 mg PO DAILY 08/10/19 08/10/19 History Allergies Allergy/AdvReac Type Severity Reaction Status Date / Time Fish Containing Products Allergy Rash/Hives Verified 08/12/19 08:12 [Fish] Penicillins Allergy Anaphylaxis Verified 08/12/19 08:12 shellfish derived [Shellfish] Allergy Rash/Hives Verified 08/12/19 08:12 Rudlnjy-Qis-Twt Reductase Allergy Rash/Hives Verified 08/12/19 08:12 Inhibitor venom-honey bee Allergy Anaphylaxis Verified 08/12/19 08:12 [bee venom (honey bee)] POLLEN,TREES Allergy SNEEZING, Uncoded 08/12/19 08:12 RUNNY NOSE Surgical - Exam Vital Signs Temp Pulse Resp BP Pulse Ox 98.2 F 94 16 101/75 96 08/12/19 08:22 08/12/19 08:22 08/12/19 08:22 08/12/19 08:22 08/12/19 08:22 - General well developed, well nourished, no distress - Eyes PERRL - ENT normal pinna - Neck no masses - Respiratory normal expansion - Cardiovascular Rhythm: regular - Abdomen Abdomen: soft, non tender Assessment and Plan Assessment: Right quadrant pain Chronically cyst We'll perform laparoscopic cholecystectomy.
[2019-08-12] MEDS ORDERED: BUPIVACAINE (PF) 0.25% 30 ML VIAL SQ ONE ×2 (09:05→09:33)
[2019-08-12] MEDS ORDERED: GLYCOPYRROLATE 0.2 MG/ML 2 ML VIAL ONE (09:14)
[2019-08-12] MEDS ORDERED: SUCCINYLCHOLINE CHLORIDE 100 MG/5 ML SYR IV ONE (09:14)
[2019-08-12] MEDS ORDERED: NEOSTIGMINE 1 MG/ML 10 ML VIAL ONE (09:14)
[2019-08-12] MEDS ORDERED: MIDAZOLAM 2 MG/2 ML VIAL ONE (09:14)
[2019-08-12] MEDS ORDERED: PROPOFOL 10 MG/ML 20 ML VIAL IV ONE (09:14)
[2019-08-12] MEDS ORDERED: fentaNYL (PF) 50 MCG/ML 2 ML AMP ONE (09:14)
[2019-08-12] MEDS ORDERED: LIDOCAINE 1% INJ 10MG/ML (20 ML MDV) ONE (09:14)
[2019-08-12] MEDS ORDERED: ROCURONIUM BROMIDE 10 MG/ML 10 ML VIAL IV ONE (09:14)
[2019-08-12] MEDS ORDERED: LACTATED RINGERS 1,000 ML IV ONE (09:52)
[2019-08-12 10:02] VITALS: TEMP 97
[2019-08-12] MEDS ORDERED: diphenhydrAMINE 50 MG/ML 1 ML VIAL IVP ONE (10:06)
[2019-08-12] MEDS: fentaNYL (PF) 50 MCG/ML 2 ML AMP IV PRN ×2 (10:06→10:18)
--- NOTE | 2019-08-12 10:16 | P.OP ---
Date of Procedure: 08/12/19 Preoperative Diagnosis: Cholecystitis Postoperative Diagnosis: Cholecystitis Procedure(s) Performed: Laparoscopic cholecystectomy Anesthesia: COLLEEN Surgeon: Selvin Barrios Estimated Blood Loss (ml): 5 Pathology: other (Gallbladder) Condition: stable Disposition: PACU Description of Procedure: The patient was placed on the operating table. The patient received a general endotracheal tube anesthesia. The patients abdomen was prepped and draped in the usual sterile fashion. Through an infraumbilical stab incision, the fascia of the anterior abdominal wall was grasped with a pair of Kochers and then the Veress needle was placed in the peritoneal cavity. Position of the Veress needle was confirmed with positive drop test. The abdomen was then insufflated. After adequate insufflation, the 10 mm trocar was placed in the peritoneal cavity. Following this the laparoscope was placed in the peritoneal cavity. The patient was placed in the head-up, right side up position and then a 5 mm trocar was placed in the right lateral and right subcostal position under direct visualization. A 8 mm trocar was placed in the epigastric position. The gallbladder was grasped in the fundus and infundibulum. Traction on the gallbladder was placed in the lateral and the cephalad positions. The triangle of Calot was visualized.. The cystic duct was bluntly dissected until the union of the cystic duct and common bile duct was seen. A critical view of safety was achieved. The cystic duct was then divided and sealed with the Harmonic scissors. A PDS Endoloop was then placed throughout the cystic duct stump. The cystic artery divided and sealed with the Harmonic scissors. The gallbladder was then removed from the liver bed using Harmonic scissors. The gallbladder was then extracted through the epigastric port site. Operative field was checked for any bleeding spots and Harmonic scissors was used to coagulate the liver bed. The abdomen was irrigated. The trocars were removed. The skin was closed using interrupted 3-0 Vicryl suture. Dermabond dressing were applied. The patient tolerated the procedure well.
[2019-08-12] MEDS: HYDROmorphone 0.5 MG/0.5 ML SYRINGE IVP PRN ×2 (10:24→10:30)
[2019-08-12 10:53] VITALS: RESP 18
[2019-08-12 11:23] VITALS: PULSE 67
[2019-08-12 11:35] VITALS: BP 137/78
== END 2019-08-12 11:36 | disposition home or self-care (01) ==
LOC: OR 07:56
PROVIDERS: ATTEND Surgery
DX: K81.1 Chronic cholecystitis (principal); I48.91 Unspecified atrial fibrillation; I10 Essential (primary) hypertension; M79.7 Fibromyalgia; K21.9 Gastro-esophageal reflux disease without esophagitis; E78.5 Hyperlipidemia, unspecified; M19.90 Unspecified osteoarthritis, unspecified site; G40.909 Epilepsy, unspecified, not intractable, without status epilepticus; F17.200 Nicotine dependence, unspecified, uncomplicated; F41.9 Anxiety disorder, unspecified; F32.9 Major depressive disorder, single episode, unspecified; F43.10 Post-traumatic stress disorder, unspecified; Z85.820 Personal history of malignant melanoma of skin; Z98.51 Tubal ligation status; Z98.890 Other specified postprocedural states; Z79.899 Other long term (current) drug therapy; Z79.82 Long term (current) use of aspirin; Z79.01 Long term (current) use of anticoagulants; Z91.013 Allergy to seafood; Z88.0 Allergy status to penicillin; Z88.8 Allergy status to other drugs, medicaments and biological substances; Z91.09 Other allergy status, other than to drugs and biological substances; Z91.030 Bee allergy status; Z85.9 Personal history of malignant neoplasm, unspecified; Z80.1 Family history of malignant neoplasm of trachea, bronchus and lung; Z80.8 Family history of malignant neoplasm of other organs or systems
CPT/HCPCS: 88304; 47562; J2250; J1200; J1644; J1100; J2710; J2405; J2001; J3010; J0330; J2704; J1170

== ENCOUNTER 2020-12-10 23:06 | Inpatient (IN) | payer MEDICARE, OTHER ==
[2020-12-10] MEDS ORDERED: ONDANSETRON 4 MG/2 ML VIAL IVP STA (23:19)
[2020-12-10] MEDS ORDERED: SODIUM CHLORIDE 0.9% 500 ML 500 ML IV STA (23:19)
[2020-12-10] MEDS ORDERED: MORPHINE SULFATE 4 MG/ML SYRINGE IVP STA (23:19)
[2020-12-10] MEDS ORDERED: FAMOTIDINE 20 MG/2 ML VIAL IV STA (23:19)
[2020-12-10] MEDS ORDERED: ASPIRIN 81 MG PO STA (23:19)
[2020-12-10 23:33] LABS: WBC 7.4 k/uL (3.8-10.6)
[2020-12-10 23:34] LABS: Basophils # (A) 0.1 k/uL (0-0.2); Basophils % (A) 1 %; Eosinophils # (A) 0.2 k/uL (0-0.7); Eosinophils % (A) 3 %; HCT 39.8 % (34.0-46.0); HGB 13.5 gm/dL (11.4-16.0); Lymphocytes # (A) 3.2 k/uL (1.0-4.8); Lymphocytes % (A) 43 %; MCH 32.3 pg (25.0-35.0); MCHC 33.9 g/dL (31.0-37.0); MCV 95.2 fL (80.0-100.0); Mean Platelet Volume 8.2; Monocytes # (A) 0.2 k/uL (0-1.0); Monocytes % (A) 3 %; Neutrophils # (A) 3.6 k/uL (1.3-7.7); Neutrophils % (A) 49 %; Platelet Count 170 k/uL (150-450); RBC 4.18 m/uL (3.80-5.40); RDW 13.4 % (11.5-15.5)
--- NOTE | 2020-12-10 23:50 | XR ---
EXAMINATION TYPE: XR chest 2V DATE OF EXAM: 12/10/2020 COMPARISON: 06/05/2017 HISTORY: Chest pain TECHNIQUE: FINDINGS: There is mild coarsening of the interstitial markings in the lower lung webb. Heart and m ediastinum are normal. There are no hilar masses. There is no pleural effusion. There are chest leads . Costophrenic angles are clear. IMPRESSION: Mild pulmonary increased interstitial density compared to old exam could relate to minima l interstitial pneumonia. No pulmonary consolidation.
[2020-12-10 23:53] LABS: ALT 13 U/L (4-34); AST 24 U/L (14-36); African American GFR (CKD) >90 (>60 ml/min/1.73 sqM); Albumin 4.2 g/dL (3.5-5.0); Alkaline Phosphatase 60 U/L (38-126); Anion Gap 11 mmol/L; Blood Urea Nitrogen 8 mg/dL (7-17); Calcium 9.1 mg/dL (8.4-10.2); Carbon Dioxide 18 mmol/L (22-30); Chloride 109 mmol/L (98-107); Glucose 107 mg/dL (74-99); Lipase 119 U/L (23-300); Magnesium 1.6 mg/dL (1.6-2.3); Non-African American GFR(CKD) >90 (>60 ml/min/1.73 sqM); Potassium 3.8 mmol/L (3.5-5.1); Sodium 138 mmol/L (137-145); Total Bilirubin 0.3 mg/dL (0.2-1.3); Total Protein 7.4 g/dL (6.3-8.2)
[2020-12-11] LABS: D-Dimer 0.22 mg/L FEU (<0.60); Partial Thromboplastin Time 23.5 sec (22.0-30.0); Prothrombin Time 10.4 sec (9.0-12.0)
[2020-12-11] MEDS ORDERED: HEPARIN SODIUM,PORCINE 5,000 UNIT/ML 1 ML VIAL IV ONE (00:34)
[2020-12-11] MEDS ORDERED: HEPARIN SODIUM,PORCINE 5,000 UNIT/ML 1 ML VIAL IV PRN (00:34)
[2020-12-11] MEDS ORDERED: NITROGLYCERIN OINT 1 INCH/GM PACKET TOPICAL STA (00:41)
[2020-12-11] MEDS ORDERED: MORPHINE SULFATE 4 MG/ML SYRINGE IVP STA (00:41)
[2020-12-11] MEDS ORDERED: HEPARIN SOD,PORK IN 0.45% NACL 25,000 UNIT in 0.45% NACL 1 250ML.BAG IV SCH (00:45)
--- NOTE | 2020-12-11 01:36 | ED ---
General Adult HPI - General Chief complaint: Chest Pain Stated complaint: Chest Pain Time Seen by Provider: 12/10/20 23:09 Source: patient, EMS Mode of arrival: EMS Limitations: no limitations - History of Present Illness Initial comments: 50-year-old female patient presents to the emergency department today for evaluation of left-sided chest pain radiating down the left arm. Patient states symptoms started about 3 days ago and has been intermittent. States her symptoms occur mostly at night. States when the pain comes on she does experiencing some nausea. States she has had several episodes of vomiting throughout the day today. States she has also had a few episodes of diarrhea. She denies any shortness of breath or sweats. Denies any dizziness or weakness. Reports history of atrial fibrillation with denies any history of MN or stentin g. Has history of hyperlipidemia but is unable to take statins due to an allergy. Did recently test negative for COVID-19, she had testing for surgical procedure coming up on her ankle. Patient denies any recent rash, fever, chills, cough, abdominal pain, constipation, back pain, numbness, tingling, dizziness, weakness, hematuria, dysuria, urinary urgency, urinary frequency, headache, visual changes, or any other complaints. - Related Data Home Medications Medication Instructions Recorded Confirmed busPIRone HCL [Buspar] 30 mg PO BID 07/21/14 08/10/19 Prazosin HCl [Minipress] 5 mg PO HS 11/07/16 08/10/19 QUEtiapine FUMARATE [Seroquel Xr] 300 mg PO HS 06/05/17 08/10/19 Rivaroxaban [Xarelto] 20 mg PO 1800 06/05/17 08/10/19 Divalproex Sodium [Depakote] 500 mg PO BID 01/22/18 08/10/19 Aspirin 325 mg PO DAILY 08/10/19 08/10/19 Cyclobenzaprine [Flexeril] 10 mg PO TID PRN 08/10/19 08/10/19 Loratadine [Claritin] 10 mg PO DAILY 08/10/19 08/10/19 Sertraline [Zoloft] 100 mg PO DAILY 08/10/19 08/10/19 Previous Rx's Medication Instructions Recorded Docusate [Colace] 100 mg PO BID #20 capsule 08/12/19 HYDROcodone/APAP 5-325MG [[place] 1 tab PO Q6HR PRN #10 tab 08/12/19 5-325] Allergies Allergy/AdvReac Type Severity Reaction Status Date / Time Fish Containing Products Allergy Rash/Hives Verified 12/10/20 23:19 [Fish] Penicillins Allergy Anaphylaxis Verified 12/10/20 23:19 shellfish derived [Shellfish] Allergy Rash/Hives Verified 12/10/20 23:19 Qxrsjiy-Fqs-Hdz Reductase Allergy Rash/Hives Verified 12/10/20 23:19 Inhibitor venom-honey bee Allergy Anaphylaxis Verified 12/10/20 23:19 [bee venom (honey bee)] POLLEN,TREES Allergy SNEEZING, Uncoded 12/10/20 23:19 RUNNY NOSE Review of Systems ROS Statement: Those systems with pertinent positive or pertinent negative responses have been documented in the HPI. ROS Other: All systems not noted in ROS Statement are negative. Past Medical History Past Medical History: Atrial Fibrillation, Cancer, Fibromyalgia, GERD/Reflux, Hyperlipidemia, Hypertension, Osteoarthritis (OA), Seizure Disorder Additional Past Medical History / Comment(s): LAST SEIZURE - APPROX 2016, BACK PAIN, HX OF MELANOMA. ENVIRONMENTAL ALLERGIES History of Any Multi-Drug Resistant Organisms: None Reported Past Surgical History: Hernia Repair, Orthopedic Surgery, Tubal Ligation Additional Past Surgical History / Comment(s): HARDWARE WAS REMOVED RT FOOT. LAURA FUNDOPLICATION. EGD. COLONOSCOPY. RT KNEE SX TO REPAIR TENDON. LT KNEE SCOPE,EGD. BILAT FOOT SX CHILD. REVISION OF LAP. LAURA Past Anesthesia/Blood Transfusion Reactions: No Reported Reaction Additional Past Anesthesia/Blood Transfusion Reaction / Comment(s): no hx blood transfusion Past Psychological History: Anxiety, Depression, PTSD Smoking Status: Current every day smoker Past Alcohol Use History: Rare Past Drug Use History: None Reported - Past Family History Mother Family Medical History: Cancer Additional Family Medical History / Comment(s): Brain and Lung. General Exam Limitations: no limitations General appearance: alert, in no apparent distress, other (This is a well- developed, well-nourished adult female patient in no acute distress. Vital signs upon presentation are temperature 98.8F, pulse 118, respirations 22, blood pressure 113/90, pulse ox 97% on room air.) Eye exam: Present: normal appearance, PERRL, EOMI. Absent: scleral icterus, conjunctival injection, periorbital swelling ENT exam: Present: normal exam, normal oropharynx, mucous membranes moist Respiratory exam: Present: normal lung sounds bilaterally. Absent: respiratory distress, wheezes, rales, rhonchi, stridor Cardiovascular Exam: Present: normal rhythm, tachycardia, normal heart sounds. Absent: systolic murmur, diastolic murmur, rubs, gallop, clicks GI/Abdominal exam: Present: soft, normal bowel sounds. Absent: distended, tenderness, guarding, rebound, rigid Neurological exam: Present: alert, oriented X3, CN II-XII intact Psychiatric exam: Present: normal affect, normal mood Skin exam: Present: warm, dry, intact, normal color. Absent: rash Course Vital Signs 12/10/20 12/11/20 12/11/20 23:13 00:07 00:58 Temperature 98.8 F Pulse Rate 118 H 105 H 110 H Respiratory 22 18 20 Rate Blood Pressure 113/90 119/80 94/78 O2 Sat by Pulse 97 98 97 Oximetry 12/11/20 01:12 Temperature Pulse Rate 100 Respiratory 20 Rate Blood Pressure 130/96 O2 Sat by Pulse 96 Oximetry EKG Findings - EKG Comments: EKG Findings:: EKG obtained at 2311 shows sinus tachycardia with a ventricular rate of 127, LA interval 148, QRS duration 84, QT 310, QTC 450. No evidence of ST elevation or depression. Medical Decision Making - Medical Decision Making 50-year-old female patient presented to the emergency department today for e valuation of left-sided chest pain with radiation down the left arm. Symptoms have been present for the last 3 days. States she did have vomiting and diarrhea. EKG was obtained and showed sinus tachycardia with no ST elevation or depression. Labs reviewed and did reveal normal d-dimer. She had elevated troponin at 0.221. Patient does have a history of hyperlipidemia unable to take statins due to ALLERGY. Also has history of atrial fibrillation not currently maintained on anticoagulation. Pain was managed utilizing morphine and Nitropaste. She'll be admitted to the hospital for NSTEMI and further evaluation by cardiology. She verbalizes understanding and agrees with this plan. - Lab Data Result diagrams: 12/10/20 23:22 12/10/20 23:22 Lab Results 12/10/20 12/10/20 12/10/20 Range/Units 23:22 23:22 23:22 WBC 7.4 (3.8-10.6) k/uL RBC 4.18 (3.80-5.40) m/uL Hgb 13.5 (11.4-16.0) gm/dL Hct 39.8 (34.0-46.0) % MCV 95.2 (80.0-100.0) fL MCH 32.3 (25.0-35.0) pg MCHC 33.9 (31.0-37.0) g/dL RDW 13.4 (11.5-15.5) % Plt Count 170 (150-450) k/uL MPV 8.2 Neutrophils % 49 % Lymphocytes % 43 % Monocytes % 3 % Eosinophils % 3 % Basophils % 1 % Neutrophils # 3.6 (1.3-7.7) k/uL Lymphocytes # 3.2 (1.0-4.8) k/uL Monocytes # 0.2 (0-1.0) k/uL Eosinophils # 0.2 (0-0.7) k/uL Basophils # 0.1 (0-0.2) k/uL PT 10.4 (9.0-12.0) sec INR 1.0 (<1.2) APTT 23.5 (22.0-30.0) sec D-Dimer 0.22 (<0.60) mg/L FEU Sodium 138 (137-145) mmol/L Potassium 3.8 (3.5-5.1) mmol/L Chloride 109 H (98-107) mmol/L Carbon Dioxide 18 L (22-30) mmol/L Anion Gap 11 mmol/L BUN 8 (7-17) mg/dL Creatinine 0.60 (0.52-1.04) mg/dL Est GFR (CKD-EPI)AfAm >90 (>60 ml/min/1.73 sqM) Est GFR (CKD-EPI)NonAf >90 (>60 ml/min/1.73 sqM) Glucose 107 H (74-99) mg/dL Calcium 9.1 (8.4-10.2) mg/dL Magnesium 1.6 (1.6-2.3) mg/dL Total Bilirubin 0.3 (0.2-1.3) mg/dL AST 24 (14-36) U/L ALT 13 (4-34) U/L Alkaline Phosphatase 60 (38-126) U/L Troponin I (0.000-0.034) ng/mL Total Protein 7.4 (6.3-8.2) g/dL Albumin 4.2 (3.5-5.0) g/dL Lipase 119 (23-300) U/L 12/10/20 Range/Units 23:22 WBC (3.8-10.6) k/uL RBC (3.80-5.40) m/uL Hgb (11.4-16.0) gm/dL Hct (34.0-46.0) % MCV (80.0-100.0) fL MCH (25.0-35.0) pg MCHC (31.0-37.0) g/dL RDW (11.5-15.5) % Plt Count (150-450) k/uL MPV Neutrophils % % Lymphocytes % % Monocytes % % Eosinophils % % Basophils % % Neutrophils # (1.3-7.7) k/uL Lymphocytes # (1.0-4.8) k/uL Monocytes # (0-1.0) k/uL Eosinophils # (0-0.7) k/uL Basophils # (0-0.2) k/uL PT (9.0-12.0) sec INR (<1.2) APTT (22.0-30.0) sec D-Dimer (<0.60) mg/L FEU Sodium (137-145) mmol/L Potassium (3.5-5.1) mmol/L Chloride (98-107) mmol/L Carbon Dioxide (22-30) mmol/L Anion Gap mmol/L BUN (7-17) mg/dL Creatinine (0.52-1.04) mg/dL Est GFR (CKD-EPI)AfAm (>60 ml/min/1.73 sqM) Est GFR (CKD-EPI)NonAf (>60 ml/min/1.73 sqM) Glucose (74-99) mg/dL Calcium (8.4-10.2) mg/dL Magnesium (1.6-2.3) mg/dL Total Bilirubin (0.2-1.3) mg/dL AST (14-36) U/L ALT (4-34) U/L Alkaline Phosphatase (38-126) U/L Troponin I 0.221 H* (0.000-0.034) ng/mL Total Protein (6.3-8.2) g/dL Albumin (3.5-5.0) g/dL Lipase (23-300) U/L - EKG Data -: EKG Interpreted by Me EKG Comments: EKG #2 was obtained at 0041 showed sinus tachycardia with a rate at 104, QT LA interval 160, QRS duration 86, QT 362, QTc 476. Does show a flipped T-wave in aVL which is new compared to her previous but no other changes or signs of ST elevation or depression. - Radiology Data Radiology results: report reviewed, image reviewed Two-view x-ray of the chest is obtained. Report was reviewed in its entirety. Impression by Dr. Ku shows mild pulmonary increased interstitial density compared to old exam could relate to minimal interstitial pneumonia. No pulmonary consolidation. Disposition Clinical Impression: NSTEMI (non-ST elevated myocardial infarction) Disposition: ADMITTED IP TO THIS [facility] Condition: Serious Referrals: Ender Ching MD [Primary Care Provider] - 1-2 days Decision to Admit Reason: Admit from EC Decision Date: 12/11/20 Decision Time: 01:38
[2020-12-11] MEDS ORDERED: MORPHINE SULFATE 4 MG/ML SYRINGE IV PRN (01:38)
[2020-12-11] MEDS ORDERED: NITROGLYCERIN SL TABS 0.4 MG TAB SUBLINGUAL PRN (01:38)
[2020-12-11] MEDS ORDERED: METOPROLOL TARTRATE 25 MG TAB PO SCH (07:45)
[2020-12-11] MEDS ORDERED: ALPRAZolam 0.25 MG TAB PO PRN (07:47)
[2020-12-11] MEDS ORDERED: SODIUM CHLORIDE 0.9% 1,000 ML in EMPTY BAG 1 BAG IV ONE (07:47)
[2020-12-11] MEDS ORDERED: ALPRAZolam 0.5 MG TAB PO PRN (07:47)
[2020-12-11] MEDS: SODIUM CHLORIDE 0.9% 1,000 ML IV SCH ×3 (08:48→21:16)
[2020-12-11] MEDS ORDERED: ASPIRIN 325 MG TAB PO SCH (09:00)
[2020-12-11] MEDS: NITROGLYCERIN OINT 1 INCH/GM PACKET TOPICAL SCH ×2 (09:49→12:54)
--- NOTE | 2020-12-11 09:52 | CONS ---
CONSULTATION Corrie Bob is a 50-year-old lady who presented to the emergency room because of left-sided chest discomfort radiating to the left arm and also had a midsternal discomfort that started about 3 days prior to arrival to the ER yesterday and had another episode yesterday which made her come to the emergency room. She recently had a negative Covid 19 antigen test, details unavailable. She has a remote history of paroxysmal atrial fibrillation, was on blood thinners, but apparently she is having some ankle surgery, details are very sketchy and patient is not a good historian. She stopped the blood thinner at least 3-4 days ago. She has history of smoking and fibromyalgia, gastroesophageal reflux disease, and also has had some closed-head injury and had some seizure disorder for which she takes Depakote. At the time of my evaluation, she is resting comfortably. Her symptoms have resolved, but the troponin has gone up and EKG revealed nonspecific ST changes. Her clinical picture is that of non-ST elevation AL, but she is comfortable at the time of my evaluation. PAST MEDICAL HISTORY: Remarkable for: 1. Paroxysmal atrial fibrillation. 2. Fibromyalgia. 3. Gastroesophageal reflux disease. 4. Hyperlipidemia but has some intolerance to statins. 5. She has had closed head injury and has seizure disorder. MEDICATIONS: At home include: [place] and Colace, Claritin, Zoloft, aspirin 325 mg daily, there is a question of Xarelto or Eliquis. She is not sure, but she stopped taking this at least 3-4 days ago. She also takes Flexeril for pain, BuSpar and Minipress for hypertension. ALLERGIES: SHE IS ALLERGIC TO STATINS AND SHE STATES SHE HAS SOME RASH AND HIVES WITH IT. PHYSICAL EXAMINATION: On examination, blood pressure is 128/70, pulse rate is about 98 per minute. HEENT was unremarkable. Fundus was not examined. Neck is supple. There is no JVD. I do not hear a carotid bruit. Heart exam reveals S1, S2. Slightly tachycardic. No significant murmurs lungs are clear. ABDOMEN: Soft. LOWER EXTREMITIES reveal diminished pulses. Central nervous system grossly within normal limits. No focal deficits. LABORATORY DATA: Reveals initial troponin of 0.2 and a repeat troponin of 0.37. Renal function is normal and hemoglobin and platelet counts are good. IMPRESSION: 1. Acute non-ST elevation myocardial infarction with resolution of chest pain at this time. 2. History of paroxysmal atrial fibrillation. 3. History of smoking. 4. History of seizure disorder with closed-head injury in the past. 5. Hypertension. 6. Hyperlipidemia, but intolerant to statins. RECOMMENDATIONS: I am recommending that we initiate her on a beta moises, metoprolol tartrate 25 mg now and 3 times a day, nitro paste 1 inch. Continue IV heparin 0.9 saline 75 mL/hour. Proceed with coronary angiography today. The rationale, risks, benefits, options were explained in detail to the patient. She understands all details and wishes to proceed with the procedure. We will try and obtain accurate medication list from the pharmacy if possible. I discussed my thoughts in detail with the patient and we will proceed with cardiac cath hopefully around noontime today. JACK / CECE: [id number] /
--- NOTE | 2020-12-11 10:16 | ECHOF ---
Referral Reason:cp MEASUREMENTS -------- HEIGHT: 170.2 cm WEIGHT: 104.3 kg BP: 129/59 RVIDd: 2.5 cm (< 3.3) IVSd: 1.4 cm (0.6 - 1.1) LVIDd: 4.1 cm (3.9 - 5.3) LVPWd: 1.3 cm (0.6 - 1.1) IVSs: 1.6 cm LVIDs: 3.0 cm LVPWs: 1.8 cm LA Diam: 3.1 cm (2.7 - 3.8) Ao Diam: 3.6 cm (2.0 - 3.7) AV Cusp: 2.1 cm (1.5 - 2.6) MV EXCURSION: 13.970 mm (> 18.000) MV EF SLOPE: 19 mm/s (70 - 150) EPSS: 0.9 cm MV E Ortega: 0.44 m/s MV DecT: 196 ms MV A Ortega: 0.58 m/s MV E/A Ratio: 0.77 FINDINGS -------- Sinus rhythm. Resting tachycardia (HR>100bpm). This was a technically adequate study. The left ventricular size is normal. There is moderate concentric left ventricular hypertrophy. O verall left ventricular systolic function is low-normal with, an EF between 50 - 55 %. Basal inferi or LV wall motion is hypokinetic. The right ventricle is normal in size. The left atrium is normal in size. The right atrial size is normal. Interatrial and interventricular septum intact. The aortic valve is trileaflet, and appears structurally normal. No aortic stenosis or regurgitation. The mitral valve is normal. There is trace to mild mitral regurgitation. The tricuspid valve appears structurally normal. Mild tricuspid regurgitation present. Trace/mild (physiologic) pulmonic regurgitation. The aortic root size is normal. Normal inferior vena cava with normal inspiratory collapse consistent with estimated right atrial pre ssure of 5 mmHg. There is no pericardial effusion. CONCLUSIONS -------- 1. There is moderate concentric left ventricular hypertrophy. 2. Basal inferior LV wall motion is hypokinetic. 3. The aortic valve is trileaflet, and appears structurally normal. No aortic stenosis or regurgitati on. 4. There is trace to mild mitral regurgitation. 5. Mild tricuspid regurgitation present. 6. Trace/mild (physiologic) pulmonic regurgitation. 7. There is no pericardial effusion. OUTGOING INSPECTOR: Ceci Luther RDCS
--- NOTE | 2020-12-11 12:15 | P.HPIM ---
History of Present Illness 50-year-old female came in with complaints of chest pain has been going on for 3 days intermittent pressure-like sensation associated with nausea lightheadedness and diaphoresis when with her first episode. Patient is found to have mildly elevated troponin. Patient is on [place] blood thinners details are not available it doesn't appear like patient is taking his medication patient has been stressed out because of her ankle surgery which was actually scheduled for tomorrow patient does smoke cut down on smoking quite a bit. Does have history of A. fib proximal atrial fibrillation presently sinus rhythm sinus tachycardia EKG shows some nonspecific ST-T wave changes in all leads. Patient was evaluated by cardiology and patient is going for cardiac catheterization today. Patient has associated shortness of breath or chest pain chest pain is nonpleuritic not associated with food Review of Systems REVIEW OF SYSTEMS: CONSTITUTIONAL: No fever, no malaise, no fatigue. HEENT: No recent visual problems or hearing problems. Denied any sore throat. CARDIOVASCULAR: orthopnea, PND, no palpitations, no syncope. PULMONARY: no cough, no hemoptysis. GASTROINTESTINAL: No diarrhea, no nausea, no vomiting, no abdominal pain. NEUROLOGICAL: No headaches, no weakness, no numbness. HEMATOLOGICAL: Denies any bleeding or petechiae. GENITOURINARY: Denies any burning micturition, frequency, or urgency. MUSCULOSKELETAL/RHEUMATOLOGICAL: Denies any joint pain, swelling, or any muscle pain. ENDOCRINE: Denies any polyuria or polydipsia. The rest of the 14-point review of systems is negative. Past Medical History Past Medical History: Atrial Fibrillation, Cancer, Fibromyalgia, GERD/Reflux, Hyperlipidemia, Hypertension, Osteoarthritis (OA), Seizure Disorder Additional Past Medical History / Comment(s): LAST SEIZURE - APPROX 2016, BACK PAIN, HX OF MELANOMA. ENVIRONMENTAL ALLERGIES History of Any Multi-Drug Resistant Organisms: None Reported Past Surgical History: Cholecystectomy, Hernia Repair, Orthopedic Surgery, Tubal Ligation Additional Past Surgical History / Comment(s): HARDWARE WAS REMOVED RT FOOT. LAURA FUNDOPLICATION. EGD. COLONOSCOPY. RT KNEE SX TO REPAIR TENDON. LT KNEE SCOPE,EGD. BILAT FOOT SX CHILD. REVISION OF LAP. LAURA Past Anesthesia/Blood Transfusion Reactions: No Reported Reaction Additional Past Anesthesia/Blood Transfusion Reaction / Comment(s): no hx blood transfusion Past Psychological History: Anxiety, Depression, PTSD Smoking Status: Current every day smoker Past Alcohol Use History: Rare Additional Past Alcohol Use History / Comment(s): HAS BEEN SMOKING SINCE AGE 16, SMOKES 4 cigarettes a day Past Drug Use History: None Reported - Past Family History Mother Family Medical History: Cancer Additional Family Medical History / Comment(s): Brain and Lung. Medications and Allergies Home Medications Medication Instructions Recorded Confirmed Type busPIRone HCL [Buspar] 30 mg PO BID 07/21/14 12/11/20 History QUEtiapine FUMARATE [Seroquel Xr] 300 mg PO HS 06/05/17 12/11/20 History Cyclobenzaprine [Flexeril] 10 mg PO TID 08/10/19 12/11/20 History Loratadine [Claritin] 10 mg PO DAILY 08/10/19 12/11/20 History Sertraline [Zoloft] 100 mg PO DAILY 08/10/19 12/11/20 History Aspirin EC [Ecotrin] 325 mg PO DAILY 12/11/20 12/11/20 History Divalproex ER [Depakote ER] 500 mg PO BID 12/11/20 12/11/20 History EPINEPHrine (Auto Inject) [Epipen] 0.3 mg IM ONCE PRN 12/11/20 12/11/20 History Ibuprofen [Motrin] 800 mg PO TID 12/11/20 12/11/20 History Omeprazole 40 mg PO DAILY 12/11/20 12/11/20 History traZODone HCL 50 mg PO HS 12/11/20 12/11/20 History Allergies Allergy/AdvReac Type Severity Reaction Status Date / Time Fish Containing Products Allergy Rash/Hives Verified 12/11/20 09:51 [Fish] Penicillins Allergy Anaphylaxis Verified 12/11/20 09:51 pollen extracts Allergy SNEEZING, Verified 12/11/20 09:51 RUNNY NOSE shellfish derived [Shellfish] Allergy Rash/Hives Verified 12/11/20 09:51 Lhbbsfu-Noh-Jck Reductase Allergy Rash/Hives Verified 12/11/20 09:51 Inhibitor tree and shrub pollen Allergy SNEEZING, Verified 12/11/20 09:51 RUNNY NOSE venom-honey bee Allergy Anaphylaxis Verified 12/11/20 09:51 [bee venom (honey bee)] POLLEN,TREES Allergy SNEEZING, Uncoded 12/11/20 09:51 RUNNY NOSE Physical Exam Vitals: Vital Signs Temp Pulse Pulse Resp BP BP Pulse Ox 12/11/20 09:48 90 103/67 12/11/20 08:47 97.9 F 100 18 97/72 94 L 12/11/20 08:45 90 18 12/11/20 04:00 98.1 F 108 H 16 129/59 94 L 12/11/20 02:51 117 H 16 12/11/20 02:25 97.7 F 117 H 16 103/55 94 L 12/11/20 01:12 100 20 130/96 96 12/11/20 00:58 110 H 20 94/78 97 12/11/20 00:07 105 H 18 119/80 98 12/10/20 23:13 98.8 F 118 H 22 113/90 97 Intake and Output 12/10/20 12/11/20 12/11/20 22:59 06:59 14:59 Intake Total 79.024 Balance 79.024 Intake: Intake, IV Titration 79.024 Amount Heparin Sod,Pork in 0.45% 79.024 NaCl 25,000 unit In 0.45 % NaCl 1 250ml.bag @ 9.63 UNITS/KG/HR 10.003 mls/ hr IV .Q24H [facility] Rx#: [id number] Other: Voiding Method Toilet Toilet # Voids 2 Weight 104.7 kg PHYSICAL EXAMINATION: GENERAL: The patient is alert and oriented x3, not in any acute distress. Well developed, well nourished. HEENT: Pupils are round and equally reacting to light. EOMI. No scleral icterus. No conjunctival pallor. Normocephalic, atraumatic. No pharyngeal erythema. No thyromegaly. CARDIOVASCULAR: S1 and S2 present. No murmurs, rubs, or gallops. PULMONARY: Chest is clear to auscultation, no wheezing or crackles. ABDOMEN: Soft, nontender, nondistended, normoactive bowel sounds. No palpable organomegaly. MUSCULOSKELETAL: No joint swelling or deformity. EXTREMITIES: No cyanosis, clubbing, or pedal edema. NEUROLOGICAL: Gross neurological examination did not reveal any focal deficits. SKIN: No rashes. Results CBC & Chem 7: 12/10/20 23:22 12/10/20 23:22 Labs: Abnormal Lab Results - Last 24 Hours (Table) 12/10/20 12/10/20 12/11/20 Range/Units 23:22 23:22 02:06 APTT (22.0-30.0) sec Chloride 109 H (98-107) mmol/L Carbon Dioxide 18 L (22-30) mmol/L Glucose 107 H (74-99) mg/dL Troponin I 0.221 H* 0.372 H* (0.000-0.034) ng/mL 12/11/20 12/11/20 Range/Units 06:00 06:00 APTT 41.7 H (22.0-30.0) sec Chloride (98-107) mmol/L Carbon Dioxide (22-30) mmol/L Glucose (74-99) mg/dL Troponin I 0.500 H* (0.000-0.034) ng/mL Thrombosis Risk Factor Assmnt - Choose All That Apply Any of the Below Risk Factors Present?: Yes Each Factor Represents 1 point: Age 41-60 years, Obesity (BMI >25) Other Risk Factors: No Thrombosis Risk Factor Assessment Total Risk Factor Score: 2 Thrombosis Risk Factor Assessment Level: Low Risk Assessment and Plan Plan: -Acute non-ST elevation myocardial infarction: Patient will undergo cardiac catheterization today continue with IV heparin antiplatelet therapy and a statin. -History of paroxysmal A. fib presently sinus rhythm with some sinus tachycardia continue with beta moises -Seizure disorder -Hypertension -hyperlipidemia -Nicotine use. For above-mentioned chronic medical problems patient will be resumed on appropriate home medications was that verified
[2020-12-11] MEDS ORDERED: VERAPAMIL 2.5 MG/ML 2 ML AMP ONE (13:09)
[2020-12-11] MEDS ORDERED: HEPARIN SODIUM 1,000 UN/ML (10ML VL) ONE (13:09)
[2020-12-11] MEDS ORDERED: MIDAZOLAM 2 MG/2 ML VIAL IVP ONE (13:26)
[2020-12-11] MEDS ORDERED: LIDOCAINE 1% INJ 10MG/ML (20 ML MDV) SQ ONE (13:26)
[2020-12-11] MEDS ORDERED: VERAPAMIL SYRINGE (5 MG/10 ML) INTRAARTER ONE ×2 (13:28→14:09)
[2020-12-11] MEDS ORDERED: IV FLUID CONTINUATION 1,000 ML IV ONE (13:29)
[2020-12-11] MEDS ORDERED: BIVALIRUDIN BOLUS 250 MG/50 ML IV ONE (13:43)
[2020-12-11] MEDS ORDERED: BIVALIRUDIN 250 MG in SODIUM CHLORIDE 0.9% 50 ML IV ONE (13:44)
[2020-12-11] MEDS ORDERED: IOPAMIDOL-370 100ML BTL INJ ONE ×2 (13:53→14:10)
[2020-12-11] MEDS ORDERED: CLOPIDOGREL 75 MG TAB ONE (14:00)
[2020-12-11] MEDS ORDERED: NITROGLYCERIN 1000MCG/10ML SYRINGE INTRACORON ONE ×2 (14:01→14:06)
[2020-12-11] MEDS ORDERED: CLOPIDOGREL 75 MG TAB PO ONE (14:04)
[2020-12-11] MEDS ORDERED: MAG HYDROX/AL HYDROX/SIMETH 30 ML CUP ONE (14:19)
--- NOTE | 2020-12-11 15:08 | CC ---
CARDIAC CATHETERIZATION REPORT DATE OF SERVICE: 12/11/2020. PROCEDURE PERFORMED: 1. Left heart catheterization and coronary angiography. 2. PTCA and stenting of high first obtuse marginal branch of circumflex. 3. PERFORMED BY: Dr. Gretel Messina. SEDATION: Moderate conscious sedation time was 54 minutes. Patient was administered Versed. Oxygen saturation, hemodynamics and EKG were monitored closely. CLINICAL INFORMATION: Mrs. Corrie Bob is a 50-year-old lady with a history of smoking, previous closed head injury with a seizure disorder, hypertension, and remote history of paroxysmal atrial fibrillation. She came into the hospital with chest pain that occurred 3 days ago and recurred again yesterday. She had a troponin elevation and nonspecific ST changes on EKG. She had a non-ST elevation ID and after due discussion I advised cardiac catheterization and explained her the rationale, risks, benefits, and options. PROCEDURE NOTE: Under local anesthesia and strict aseptic precautions, a 6-Micronesian introducer was placed in the right radial artery. Using a JL3.5 and JR4 catheter, I performed coronary angiography. The same right catheter was used to check LV pressures. LV gram was not performed. Following the procedure, I went ahead and performed PTCA and stenting of a high first obtuse marginal branch of circumflex. CARDIAC CATHETERIZATION FINDINGS: The left ventricular end-diastolic pressure was about 12-13 mmHg without any gradient across aortic valve. CORONARY ANGIOGRAPHY FINDINGS: RIGHT CORONARY ARTERY: Technically a dominant vessel has no significant disease. Distally bifurcates into small PLV and larger PDA. Has minor irregularities. No significant disease. LEFT MAIN CORONARY ARTERY: Short, patent vessel free of significant disease that immediately bifurcates into LAD and circumflex. LEFT ANTERIOR DESCENDING CORONARY ARTERY is a good caliber vessel, extends along the anterior wall, gives off septal and diagonal branches and in the midportion has a good- sized to septal branches, a good-sized diagonal branches. Runs all the way to the apex and curves over the apex to supply the inferoapical portion of left ventricle. No significant disease other than 30-35 percent minor irregularities and mild calcification of the LAD. LEFT POSTERIOR CIRCUMFLEX CORONARY ARTERY: Technically a nondominant vessel, gives off a very high first obtuse marginal that has a 99% stenosis with haziness and thrombus, which is the culprit lesion and then there are 2 more obtuse marginal branches and the 3rd posterolateral branch comes off and then the vessel runs in the AV groove. The circumflex is a high first obtuse marginal therefore has a 95 percent stenosis with thrombus and is the culprit lesion. Left ventriculogram was not performed. FINAL IMPRESSION: This patient has normal filling pressures. No significant across aortic valve. A right-dominant system with 30 to 35% mid LAD disease. No significant disease in RCA and a 99% high first obtuse marginal stenosis which is the culprit lesion. RECOMMENDATIONS: I recommend PCI of the high first obtuse marginal and proceeded to perform this in the same setting. PCI PROCEDURE DETAILS: Patient received Angiomax bolus infusion and 600 mg of Plavix. I used a JL3.5 guide catheter to cannulate left coronary artery and I initially used a run-through wire. With this, I was unable to cannulate the first OM. It came off very high. I switched over to a whisper wire, but eventually I went back to the run- through and with this I was able to cross the lesion. Wire was kept distally. Predilatation was performed with a 2.5 x 15 mm long trek balloon. I then deployed an 18 mm long 3.0 caliber Xience stent in the proximal portion and just at the distal end of the stent, I deployed another 8 mm long 2.75 caliber Xience stent. Patient had chest pain, but no significant EKG changes. Excellent angiographic result was achieved without complication. The sheath was taken out and a TR band applied as per protocol. The saturation of the fingers of the right hand of 95%. Patient received Plavix 60 mg bolus and also Angiomax bolus and drip, which was discontinued at the end of the procedure. Excellent angiographic result was achieved without complication. MMODL / IJN: [id number] /
[2020-12-11] MEDS ORDERED: PRAVASTATIN SODIUM 40 MG TAB PO SCH (21:00)
[2020-12-11] MEDS: METOPROLOL TARTRATE 50 MG TAB PO SCH (21:16)
[2020-12-12 00:38] VITALS: RESP 18
[2020-12-12] MEDS ORDERED: HEPARIN SODIUM,PORCINE 10,000 UNIT in SODIUM CHLORIDE 0.9% 1,000 ML IRRIGATION PRN (07:00)
[2020-12-12] MEDS ORDERED: HEPARIN SODIUM,PORCINE 2,500 UNIT in SODIUM CHLORIDE 0.9% 250 ML IRRIGATION PRN (07:00)
[2020-12-12 07:36] LABS: Basophils % (A) 1 %; Eosinophils # (A) 0.2 k/uL (0-0.7); Eosinophils % (A) 4 %; HCT 36.7 % (34.0-46.0); HGB 12.1 gm/dL (11.4-16.0); Lymphocytes # (A) 2.1 k/uL (1.0-4.8); Lymphocytes % (A) 35 %; MCH 32.7 pg (25.0-35.0); MCV 99.2 fL (80.0-100.0); Monocytes # (A) 0.3 k/uL (0-1.0); Monocytes % (A) 5 %; Neutrophils # (A) 3.1 k/uL (1.3-7.7); Neutrophils % (A) 53 %; Platelet Count 136 k/uL (150-450); RDW 13.5 % (11.5-15.5); WBC 5.8 k/uL (3.8-10.6)
[2020-12-12 07:44] LABS: African American GFR (CKD) >90 (>60 ml/min/1.73 sqM); Anion Gap 2 mmol/L; Blood Urea Nitrogen 17 mg/dL (7-17); Calcium 8.8 mg/dL (8.4-10.2); Carbon Dioxide 27 mmol/L (22-30); Chloride 108 mmol/L (98-107); Cholesterol 243 mg/dL (<200); Glucose 95 mg/dL (74-99); HDL Cholesterol 62 mg/dL (40-60); LDL Cholesterol,Calculated 122 mg/dL (0-99); Non-African American GFR(CKD) >90 (>60 ml/min/1.73 sqM); Potassium 4.3 mmol/L (3.5-5.1); Sodium 137 mmol/L (137-145); Triglycerides 297 mg/dL (<150)
[2020-12-12] MEDS ORDERED: LOSARTAN 25 MG TAB PO SCH (09:00)
[2020-12-12] MEDS ORDERED: ASPIRIN 325 MG TAB PO SCH (09:00)
[2020-12-12] MEDS ORDERED: ASPIRIN 81 MG PO SCH (09:00)
[2020-12-12] MEDS ORDERED: SODIUM CHLORIDE 0.9% 1,000 ML IV SCH (09:00)
[2020-12-12] MEDS ORDERED: CLOPIDOGREL 75 MG TAB PO SCH (09:00)
[2020-12-12] MEDS: METOPROLOL TARTRATE 50 MG TAB PO SCH (09:28)
[2020-12-12 10:57] VITALS: TEMP 97.7
--- NOTE | 2020-12-12 11:04 | P.PN ---
Subjective This is a pleasant 50-year-old female past medical history significant for paroxysmal atrial fibrillation, dyslipidemia, closed head injury and seizure disorder. She underwent cardiac catheterization yesterday with Dr Messina and has successful PCI of the first OM branch of the circumflex. She also had mild 30- 35% disease of the mid LAD. She is seen and examined sitting up in bed in no acute distress. She has no symptoms of chest pain, shortness of breath, dizziness or palpitations. Repeat EKG this morning reveals sinus mechanism with no acute ST or T wave abnormalities noted. Blood pressure 134/80 heart rate 70 afebrile maintaining oxygen saturation on room air. Laboratory data reviewed, WBC 5.8, hemoglobin 12.1, platelets 136, sodium 137, potassium 4.3, creatinine 0.65. Echocardiogram obtained reveals preserved LV systolic function with ejection fraction 50-55%, basal inferior LV wall motion hypokinesia and mild tricuspid regurgitation. GENERAL: Well-appearing, well-nourished and in no acute distress. NECK: Supple without JVD or thyromegaly. LUNGS: Breath sounds clear to auscultation bilaterally. Respiration equal and unlabored. No wheezes, rales or rhonchi. HEART: Regular rate and rhythm without murmurs, rubs or gallops. S1 and S2 heard. EXTREMITIES: Normal range of motion, no edema. No clubbing or cyanosis. Peripheral pulses intact. Right radial access site soft, nontender with a strong pulse and no evidence of hematoma. ASSESSMENT NSTEMI History of paroxysmal atrial fibrillation. Unclear of these details, no EKG afib documented in this hospital and pt is a poor historian Hypertension Dyslipidemia, intolerant to Lipitor History of seizure disorder and closed head injury PLAN Importance of dual anti-platelet therapy discussed in detail with the patient. Prescriptions are sent tot he pharmacy. She is agreeable to take pravastatin and assess for allergic reaction. She had a dose last night and had no rashes. Follow up with Dr. Messina in the office next week. Nurse Practitioner note has been reviewed, I agree with a documented findings and plan of care. Patient was seen and examined. Objective - Vital Signs Vital signs: Vital Signs Temp 97.6 F 12/12/20 04:00 Pulse 83 12/12/20 04:00 Resp 18 12/12/20 04:00 BP 128/89 12/12/20 04:00 Pulse Ox 96 12/12/20 04:00 Intake & Output 12/11/20 12/12/20 12/12/20 18:59 06:59 18:59 Intake Total 993.955 720 Balance 993.955 720 Weight 106.5 kg Intake: IV 265 Heparin Sod,Pork in 0.45% 80 NaCl 25,000 unit In 0.45 % NaCl 1 250ml.bag @ 9.63 UNITS/KG/HR 10.003 mls/ hr IV .Q24H YASEMIN Rx#: [id number] Intake, IV Titration 728.955 Amount Heparin Sod,Pork in 0.45% 128.955 NaCl 25,000 unit In 0.45 % NaCl 1 250ml.bag @ 9.63 UNITS/KG/HR 10.003 mls/ hr IV .Q24H YASEMIN Rx#: [id number] Sodium Chloride 0.9% 1, 600 000 ml @ 75 mls/hr IV . [id number] YASEMIN Rx#:[id number] Oral 720 Other: Voiding Method Toilet Toilet # Voids 1 1 1 - Labs CBC & Chem 7: 12/12/20 06:56 12/12/20 06:56 Labs: Abnormal Lab Results - Last 24 Hours (Table) 12/12/20 12/12/20 Range/Units 06:56 06:56 RBC 3.70 L (3.80-5.40) m/uL Plt Count 136 L (150-450) k/uL Chloride 108 H (98-107) mmol/L Triglycerides 297 H (<150) mg/dL Cholesterol 243 H (<200) mg/dL LDL Cholesterol, Calc 122 H (0-99) mg/dL HDL Cholesterol 62 H (40-60) mg/dL
--- NOTE | 2020-12-12 11:07 | P.DS ---
Providers Date of admission: 12/11/20 11:15 Attending physician: Gerry Anaya MD Consults: 12/11/20 01:38 Consult Physician Urgent Consulting Provider: [facility] Consult Reason/Comments: Chest Pain Do you want consulting provider notified?: Yes Primary care physician: Humza Handley [facility] Hospital Course: 50-year-old female came in with complaints of chest pain has been going on for 3 days intermittent pressure-like sensation associated with nausea lightheadedness and diaphoresis when with her first episode. Patient is found to have mildly elevated troponin. Patient is on [place] blood thinners details are not available it doesn't appear like patient is taking his medication patient has been stressed out because of her ankle surgery which was actually scheduled for tomorrow patient does smoke cut down on smoking quite a bit. Does have history of A. fib proximal atrial fibrillation presently sinus rhythm sinus tachycardia EKG shows some nonspecific ST-T wave changes in all leads. Patient was evaluated by cardiology and patient is going for cardiac catheterization today. Patient has associated shortness of breath or chest pain chest pain is nonpleuritic not associated with food. 12/12/2020 Patient had cardiac catheterization and stenting to obtuse marginal branch of circumflex patient has a mild 30 to that represents indices and be the LAD. P atient had a normal ejection fraction on echocardiogram. Patient is being discharged today. PHYSICAL EXAMINATION: GENERAL: The patient is alert and oriented x3, not in any acute distress. Well d eveloped, well nourished. HEENT: Pupils are round and equally reacting to light. EOMI. No scleral icterus. No conjunctival pallor. Normocephalic, atraumatic. No pharyngeal erythema. No thyromegaly. CARDIOVASCULAR: S1 and S2 present. No murmurs, rubs, or gallops. PULMONARY: Chest is clear to auscultation, no wheezing or crackles. ABDOMEN: Soft, nontender, nondistended, normoactive bowel sounds. No palpable organomegaly. MUSCULOSKELETAL: No joint swelling or deformity. EXTREMITIES: No cyanosis, clubbing, or pedal edema. NEUROLOGICAL: Gross neurological examination did not reveal any focal deficits. SKIN: No rashes. Assessment and Plan Plan: -Acute non-ST elevation myocardial infarction -History of paroxysmal A. fib presently sinus rhythm -Seizure disorder -Hypertension -hyperlipidemia -Nicotine use. Patient Condition at Discharge: Serious Plan - Discharge Summary Discharge Rx Participant: Yes New Discharge Prescriptions: New Aspirin 81 mg PO DAILY chew Losartan [Cozaar] 25 mg PO DAILY #90 tab Metoprolol Tartrate [Lopressor] 50 mg PO BID #180 tab Clopidogrel [Plavix] 75 mg PO DAILY #90 tab Pravastatin Sodium [Pravachol] 40 mg PO HS #90 tab Continue busPIRone HCL [Buspar] 30 mg PO BID QUEtiapine FUMARATE [Seroquel Xr] 300 mg PO HS Cyclobenzaprine [Flexeril] 10 mg PO TID Loratadine [Claritin] 10 mg PO DAILY Sertraline [Zoloft] 100 mg PO DAILY traZODone HCL 50 mg PO HS Divalproex ER [Depakote ER] 500 mg PO BID Omeprazole 40 mg PO DAILY Ibuprofen [Motrin] 800 mg PO TID EPINEPHrine (Auto Inject) [Epipen] 0.3 mg IM ONCE PRN PRN Reason: Anaphylaxis Discontinued Aspirin EC [Ecotrin] 325 mg PO DAILY Discharge Medication List busPIRone HCL [Buspar] 30 mg PO BID 07/21/14 [History] QUEtiapine FUMARATE [Seroquel Xr] 300 mg PO HS 06/05/17 [History] Cyclobenzaprine [Flexeril] 10 mg PO TID 08/10/19 [History] Loratadine [Claritin] 10 mg PO DAILY 08/10/19 [History] Sertraline [Zoloft] 100 mg PO DAILY 08/10/19 [History] Divalproex ER [Depakote ER] 500 mg PO BID 12/11/20 [History] EPINEPHrine (Auto Inject) [Epipen] 0.3 mg IM ONCE PRN 12/11/20 [History] Ibuprofen [Motrin] 800 mg PO TID 12/11/20 [History] Omeprazole 40 mg PO DAILY 12/11/20 [History] traZODone HCL 50 mg PO HS 12/11/20 [History] Aspirin 81 mg PO DAILY chew 12/12/20 [Rx] Clopidogrel [Plavix] 75 mg PO DAILY #90 tab 12/12/20 [Rx] Losartan [Cozaar] 25 mg PO DAILY #90 tab 12/12/20 [Rx] Metoprolol Tartrate [Lopressor] 50 mg PO BID #180 tab 12/12/20 [Rx] Pravastatin Sodium [Pravachol] 40 mg PO HS #90 tab 12/12/20 [Rx] Follow up Appointment(s)/Referral(s): Anita Messina MD [STAFF PHYSICIAN] - 1 Week Ender Ching MD [Primary Care Provider] - 1-2 days
[2020-12-12] MEDS: SODIUM CHLORIDE 0.9% 1,000 ML IV SCH ×2 (12:06→12:09)
[2020-12-12 13:21] VITALS: BP 163/86; PULSE 85
== END 2020-12-12 14:59 | disposition home or self-care (01) | DRG 247 ==
LOC: EC 23:06 → 3SCARD 12-11 01:58 → OBSVTOIN 12-11 11:15 → 3SCARD 12-11 13:06
PROVIDERS: ADMIT Internal Medicine; ATTEND Internal Medicine
PROC: B2161ZZ Fluoroscopy of Right and Left Heart using Low Osmolar Contrast (ICD-10-PCS; 2020-12-11)
PROC: B2111ZZ Fluoroscopy of Multiple Coronary Arteries using Low Osmolar Contrast (ICD-10-PCS; 2020-12-11)
PROC: 027034Z Dilation of Coronary Artery, One Artery with Drug-eluting Intraluminal Device, Percutaneous Approach (ICD-10-PCS; principal; 2020-12-11 11:40)
PROC: 4A023N7 Measurement of Cardiac Sampling and Pressure, Left Heart, Percutaneous Approach (ICD-10-PCS; 2020-12-11 11:40)
DX: I21.4 Non-ST elevation (NSTEMI) myocardial infarction (principal); I25.10 Atherosclerotic heart disease of native coronary artery without angina pectoris; I48.0 Paroxysmal atrial fibrillation; M79.7 Fibromyalgia; Z20.822 Contact with and (suspected) exposure to COVID-19; G40.909 Epilepsy, unspecified, not intractable, without status epilepticus; F17.210 Nicotine dependence, cigarettes, uncomplicated; I10 Essential (primary) hypertension; F32.9 Major depressive disorder, single episode, unspecified; F43.10 Post-traumatic stress disorder, unspecified; F41.9 Anxiety disorder, unspecified; E78.5 Hyperlipidemia, unspecified; R00.0 Tachycardia, unspecified; K21.9 Gastro-esophageal reflux disease without esophagitis; M19.90 Unspecified osteoarthritis, unspecified site; Z79.899 Other long term (current) drug therapy; Z79.82 Long term (current) use of aspirin; Z79.01 Long term (current) use of anticoagulants; Z87.828 Personal history of other (healed) physical injury and trauma; Z85.820 Personal history of malignant melanoma of skin; Z88.0 Allergy status to penicillin; Z91.048 Other nonmedicinal substance allergy status; Z91.030 Bee allergy status; Z98.51 Tubal ligation status; Z87.820 Personal history of traumatic brain injury; Z98.890 Other specified postprocedural states; Z80.8 Family history of malignant neoplasm of other organs or systems; Z80.1 Family history of malignant neoplasm of trachea, bronchus and lung
CPT/HCPCS: 36415; 71046; 80048; 80053; 80061; 83690; 83735; 84484; 85025; 85379; 85610; 85730; 93005; 93306; 93458; 96361; 96365; 96375; 96376; 99285

== ENCOUNTER 2021-02-20 22:08 | Emergency (ER) | payer MEDICARE, OTHER ==
[2021-02-20 22:24] VITALS: TEMP 98.9
--- NOTE | 2021-02-20 22:25 | ED ---
General Adult HPI <Gregg Marie - Last Filed: 02/20/21 22:23> - General Source: RN notes reviewed, old records reviewed - History of Present Illness -: days(s) Radiation: non-radiation Severity scale (1-10): 4 Quality: aching Consistency: constant Improves with: none Worsens with: none Associated Symptoms: chest pain, cough, loss of appetite, shortness of breath, weakness Treatments Prior to Arrival: none <Osbaldo Hines - Last Filed: 02/21/21 04:18> - General Stated complaint: Chest Pain - History of Present Illness Initial comments: 50-year-old female with history of dyslipidemia, hypertension, and STEMI, coronary disease presents to the emergency department with a chief complaint of chest pain or shortness of breath. Patient reports the symptoms began yesterday. Patient reports pain across her chest and it feels like a pressure without any radiation. States the pain is pleuritic in nature and exacerbated when taking deep breaths. States there has been a possible direct exposure to known Covid patient. (Gregg Marie) This is a 50-year-old female DF for evaluation. History from history of ST elevated UT and CAD coming in for chest pain shortness of breath today. Patient states she does have a positive coronavirus exposure is concern for being exposed to coronavirus (Osbaldo Hines) - Related Data Home Medications Medication Instructions Recorded Confirmed busPIRone HCL [Buspar] 30 mg PO BID 07/21/14 12/11/20 QUEtiapine FUMARATE [Seroquel Xr] 300 mg PO HS 06/05/17 12/11/20 Cyclobenzaprine [Flexeril] 10 mg PO TID 08/10/19 12/11/20 Loratadine [Claritin] 10 mg PO DAILY 08/10/19 12/11/20 Sertraline [Zoloft] 100 mg PO DAILY 08/10/19 12/11/20 Divalproex ER [Depakote ER] 500 mg PO BID 12/11/20 12/11/20 EPINEPHrine (Auto Inject) [Epipen] 0.3 mg IM ONCE PRN 12/11/20 12/11/20 Ibuprofen [Motrin] 800 mg PO TID 12/11/20 12/11/20 Omeprazole 40 mg PO DAILY 12/11/20 12/11/20 traZODone HCL 50 mg PO HS 12/11/20 12/11/20 Previous Rx's Medication Instructions Recorded Aspirin 81 mg PO DAILY chew 12/12/20 Clopidogrel [Plavix] 75 mg PO DAILY #90 tab 12/12/20 Losartan [Cozaar] 25 mg PO DAILY #90 tab 12/12/20 Metoprolol Tartrate [Lopressor] 50 mg PO BID #180 tab 12/12/20 Pravastatin Sodium [Pravachol] 40 mg PO HS #90 tab 12/12/20 Allergies Allergy/AdvReac Type Severity Reaction Status Date / Time atorvastatin [From Lipitor] Allergy Rash/Hives Verified 02/20/21 22:24 Fish Containing Products Allergy Rash/Hives Verified 02/20/21 22:24 [Fish] Penicillins Allergy Anaphylaxis Verified 02/20/21 22:24 pollen extracts Allergy SNEEZING, Verified 02/20/21 22:24 RUNNY NOSE shellfish derived [Shellfish] Allergy Rash/Hives Verified 02/20/21 22:24 tree and shrub pollen Allergy SNEEZING, Verified 02/20/21 22:24 RUNNY NOSE venom-honey bee Allergy Anaphylaxis Verified 02/20/21 22:24 [bee venom (honey bee)] POLLEN,TREES Allergy SNEEZING, Uncoded 02/20/21 22:24 RUNNY NOSE Review of Systems ROS Other: All systems not noted in ROS Statement are negative. <Gregg Marie - Last Filed: 02/20/21 22:23> ROS Other: All systems not noted in ROS Statement are negative. <Osbaldo Hines - Last Filed: 02/21/21 04:18> ROS Statement: Those systems with pertinent positive or pertinent negative responses have been documented in the HPI. Past Medical History Past Medical History: Atrial Fibrillation, Cancer, Fibromyalgia, GERD/Reflux, Hyperlipidemia, Hypertension, Osteoarthritis (OA), Seizure Disorder Additional Past Medical History / Comment(s): LAST SEIZURE - APPROX 2016, BACK PAIN, HX OF MELANOMA. ENVIRONMENTAL ALLERGIES History of Any Multi-Drug Resistant Organisms: None Reported Past Surgical History: Cholecystectomy, Hernia Repair, Orthopedic Surgery, Tubal Ligation Additional Past Surgical History / Comment(s): HARDWARE WAS REMOVED RT FOOT. LAURA FUNDOPLICATION. EGD. COLONOSCOPY. RT KNEE SX TO REPAIR TENDON. LT KNEE SCOPE,EGD. BILAT FOOT SX CHILD. REVISION OF LAP. LAURA Past Anesthesia/Blood Transfusion Reactions: No Reported Reaction Additional Past Anesthesia/Blood Transfusion Reaction / Comment(s): no hx blood transfusion Past Psychological History: Anxiety, Depression, PTSD Smoking Status: Current every day smoker Past Alcohol Use History: Rare Additional Past Alcohol Use History / Comment(s): HAS BEEN SMOKING SINCE AGE 16, SMOKES 4 cigarettes a day Past Drug Use History: None Reported - Past Family History Mother Family Medical History: Cancer Additional Family Medical History / Comment(s): Brain and Lung. <Gregg Marie - Last Filed: 02/20/21 22:23> General Exam General appearance: alert, in no apparent distress Head exam: Present: atraumatic, normocephalic, normal inspection Eye exam: Present: normal appearance, PERRL, EOMI. Absent: scleral icterus, conjunctival injection, periorbital swelling ENT exam: Present: normal exam, mucous membranes moist Neck exam: Present: normal inspection. Absent: tenderness, meningismus, lymphadenopathy Respiratory exam: Present: normal lung sounds bilaterally. Absent: respiratory distress, wheezes, rales, rhonchi, stridor Cardiovascular Exam: Present: regular rate, normal rhythm, normal heart sounds. Absent: systolic murmur, diastolic murmur, rubs, gallop, clicks GI/Abdominal exam: Present: soft, normal bowel sounds. Absent: distended, tenderness, guarding, rebound, rigid Extremities exam: Present: normal inspection, full ROM, normal capillary refill. Absent: tenderness, pedal edema, joint swelling, calf tenderness Back exam: Present: normal inspection Neurological exam: Present: alert, oriented X3, CN II-XII intact Psychiatric exam: Present: normal affect, normal mood Skin exam: Present: warm, dry, intact, normal color. Absent: rash <Osbaldo Hines - Last Filed: 02/21/21 04:18> Course <Osbaldo Hines - Last Filed: 02/21/21 04:18> Vital Signs 02/20/21 02/20/21 02/21/21 22:20 22:40 00:13 Temperature 98.9 F Pulse Rate 95 90 Pulse Rate [ 80 Bone Density Technician ] Respiratory 22 16 Rate Blood Pressure 161/95 158/88 O2 Sat by Pulse 98 96 Oximetry - Reevaluation(s) Reevaluation #1: Medical record is reviewed Patient symptoms are significantly improved Patient informed results and questions have been answered (Osbaldo Hines) EKG Findings - EKG Comments: EKG Findings:: EKG is sinus rhythm 80 MA 150 QRS 86 QTc 461 <Osbaldo Hines - Last Filed: 02/21/21 04:18> Medical Decision Making - Lab Data Result diagrams: 02/20/21 22:30 02/20/21 22:30 - Radiology Data Radiology results: report reviewed (Chest x-ray is negative for acute disease), image reviewed <Osbaldo Hines - Last Filed: 02/21/21 04:18> - Medical Decision Making 50 female for chest pain, chest, positive coronavirus exposure, patient informed results, patient is negative for coronavirus. Chest x-ray shows mild coronavirus pneumonia (Osbaldo Hines) - Lab Data Lab Results 02/20/21 02/20/21 02/20/21 Range/Units 22:30 22:30 22:30 WBC 7.5 (3.8-10.6) k/uL RBC 3.81 (3.80-5.40) m/uL Hgb 13.2 (11.4-16.0) gm/dL Hct 36.2 (34.0-46.0) % MCV 95.0 (80.0-100.0) fL MCH 34.5 (25.0-35.0) pg MCHC 36.4 (31.0-37.0) g/dL RDW 13.2 (11.5-15.5) % Plt Count 132 L (150-450) k/uL MPV 8.8 Neutrophils % 54 % Lymphocytes % 38 % Monocytes % 4 % Eosinophils % 3 % Basophils % 1 % Neutrophils # 4.0 (1.3-7.7) k/uL Lymphocytes # 2.9 (1.0-4.8) k/uL Monocytes # 0.3 (0-1.0) k/uL Eosinophils # 0.2 (0-0.7) k/uL Basophils # 0.0 (0-0.2) k/uL PT 10.9 (9.0-12.0) sec INR 1.0 (<1.2) APTT 25.9 (22.0-30.0) sec D-Dimer 0.21 (<0.60) mg/L FEU Sodium 136 L (137-145) mmol/L Potassium 3.5 (3.5-5.1) mmol/L Chloride 105 (98-107) mmol/L Carbon Dioxide 19 L (22-30) mmol/L Anion Gap 12 mmol/L BUN 9 (7-17) mg/dL Creatinine 0.71 (0.52-1.04) mg/dL Est GFR (CKD-EPI)AfAm >90 (>60 ml/min/1.73 sqM) Est GFR (CKD-EPI)NonAf >90 (>60 ml/min/1.73 sqM) Glucose 110 H (74-99) mg/dL Calcium 9.2 (8.4-10.2) mg/dL Magnesium 1.4 L (1.6-2.3) mg/dL Total Bilirubin 0.7 (0.2-1.3) mg/dL AST 46 H (14-36) U/L ALT 30 (4-34) U/L Alkaline Phosphatase 75 (38-126) U/L Troponin I (0.000-0.034) ng/mL NT-Pro-B Natriuret Pep pg/mL Total Protein 6.8 (6.3-8.2) g/dL Albumin 4.0 (3.5-5.0) g/dL Coronavirus (PCR) (Not Detectd) 02/20/21 02/20/21 02/20/21 Range/Units 22:30 22:30 22:47 WBC (3.8-10.6) k/uL RBC (3.80-5.40) m/uL Hgb (11.4-16.0) gm/dL Hct (34.0-46.0) % MCV (80.0-100.0) fL MCH (25.0-35.0) pg MCHC (31.0-37.0) g/dL RDW (11.5-15.5) % Plt Count (150-450) k/uL MPV Neutrophils % % Lymphocytes % % Monocytes % % Eosinophils % % Basophils % % Neutrophils # (1.3-7.7) k/uL Lymphocytes # (1.0-4.8) k/uL Monocytes # (0-1.0) k/uL Eosinophils # (0-0.7) k/uL Basophils # (0-0.2) k/uL PT (9.0-12.0) sec INR (<1.2) APTT (22.0-30.0) sec D-Dimer (<0.60) mg/L FEU Sodium (137-145) mmol/L Potassium (3.5-5.1) mmol/L Chloride (98-107) mmol/L Carbon Dioxide (22-30) mmol/L Anion Gap mmol/L BUN (7-17) mg/dL Creatinine (0.52-1.04) mg/dL Est GFR (CKD-EPI)AfAm (>60 ml/min/1.73 sqM) Est GFR (CKD-EPI)NonAf (>60 ml/min/1.73 sqM) Glucose (74-99) mg/dL Calcium (8.4-10.2) mg/dL Magnesium (1.6-2.3) mg/dL Total Bilirubin (0.2-1.3) mg/dL AST (14-36) U/L ALT (4-34) U/L Alkaline Phosphatase (38-126) U/L Troponin I <0.012 (0.000-0.034) ng/mL NT-Pro-B Natriuret Pep 982 pg/mL Total Protein (6.3-8.2) g/dL Albumin (3.5-5.0) g/dL Coronavirus (PCR) Not Detected (Not Detectd) Disposition <Gregg Marie - Last Filed: 02/20/21 22:23> Is patient prescribed a controlled substance at d/c from ED?: No <Osbaldo Hines - Last Filed: 02/21/21 04:18> Clinical Impression: Chest pain, Atypical chest pain Narrative: Negative Coronavirus Exposure (Osbaldo Hines) Disposition: HOME SELF-CARE Condition: Good Instructions (If sedation given, give patient instructions): Chest Pain (ED) Referrals: Ender Ching MD [Primary Care Provider] - 1-2 days
[2021-02-20] MEDS ORDERED: MORPHINE SULFATE 4 MG/ML SYRINGE IVP STA (22:59)
--- NOTE | 2021-02-20 23:02 | XR ---
EXAMINATION TYPE: XR chest 2V DATE OF EXAM: 02/20/2021 COMPARISON: 12/10/2020 HISTORY: Chest pain TECHNIQUE: 2 views FINDINGS: Heart is normal. Lungs are clear of infiltrate. There is no heart failure. There are chest leads. Costophrenic angles are clear. IMPRESSION: No active cardiopulmonary disease. No adverse change.
[2021-02-20 23:05] LABS: Basophils % (A) 1 %; Eosinophils # (A) 0.2 k/uL (0-0.7); Eosinophils % (A) 3 %; HCT 36.2 % (34.0-46.0); HGB 13.2 gm/dL (11.4-16.0); Lymphocytes # (A) 2.9 k/uL (1.0-4.8); Lymphocytes % (A) 38 %; MCH 34.5 pg (25.0-35.0); MCHC 36.4 g/dL (31.0-37.0); Mean Platelet Volume 8.8; Monocytes # (A) 0.3 k/uL (0-1.0); Monocytes % (A) 4 %; Neutrophils % (A) 54 %; Platelet Count 132 k/uL (150-450); RBC 3.81 m/uL (3.80-5.40); RDW 13.2 % (11.5-15.5); WBC 7.5 k/uL (3.8-10.6)
[2021-02-20 23:18] LABS: D-Dimer 0.21 mg/L FEU (<0.60); Partial Thromboplastin Time 25.9 sec (22.0-30.0); Prothrombin Time 10.9 sec (9.0-12.0)
[2021-02-20 23:19] LABS: ALT 30 U/L (4-34); AST 46 U/L (14-36); African American GFR (CKD) >90 (>60 ml/min/1.73 sqM); Alkaline Phosphatase 75 U/L (38-126); Anion Gap 12 mmol/L; Blood Urea Nitrogen 9 mg/dL (7-17); Calcium 9.2 mg/dL (8.4-10.2); Carbon Dioxide 19 mmol/L (22-30); Chloride 105 mmol/L (98-107); Glucose 110 mg/dL (74-99); Magnesium 1.4 mg/dL (1.6-2.3); Non-African American GFR(CKD) >90 (>60 ml/min/1.73 sqM); Potassium 3.5 mmol/L (3.5-5.1); Sodium 136 mmol/L (137-145); Total Bilirubin 0.7 mg/dL (0.2-1.3); Total Protein 6.8 g/dL (6.3-8.2)
[2021-02-21 00:13] VITALS: BP 158/88; PULSE 90; RESP 16
== END 2021-02-21 00:13 | disposition home or self-care (01) ==
LOC: EC 22:08
DX: R07.89 Other chest pain (principal); E78.5 Hyperlipidemia, unspecified; F17.210 Nicotine dependence, cigarettes, uncomplicated; F32.9 Major depressive disorder, single episode, unspecified; F41.9 Anxiety disorder, unspecified; I10 Essential (primary) hypertension; I25.10 Atherosclerotic heart disease of native coronary artery without angina pectoris; I25.2 Old myocardial infarction; I48.91 Unspecified atrial fibrillation; K21.9 Gastro-esophageal reflux disease without esophagitis; M19.90 Unspecified osteoarthritis, unspecified site; Z20.822 Contact with and (suspected) exposure to COVID-19; Z85.820 Personal history of malignant melanoma of skin; Z79.82 Long term (current) use of aspirin; Z79.899 Other long term (current) drug therapy; Z88.0 Allergy status to penicillin
CPT/HCPCS: 36415; 93005; 85379; 83880; 80053; 83735; 84484; 85025; 85610; 85730; 87635; 71046; 99285; 96374; J2270

== ENCOUNTER 2021-07-03 20:19 | Emergency (ER) | payer MEDICARE, OTHER ==
[2021-07-03 20:25] VITALS: BP 111/74; PULSE 85; RESP 18; TEMP 97.9
[2021-07-03] MEDS ORDERED: methylPREDNISolone SOD SUCCI 125 MG/2 ML VIAL IV STA (20:26)
[2021-07-03] MEDS ORDERED: FAMOTIDINE 20 MG/2 ML VIAL IV STA (20:26)
--- NOTE | 2021-07-04 00:04 | ED ---
General Adult HPI - General Chief complaint: Allergic Reaction Stated complaint: Allergic Reaction Time Seen by Provider: 07/03/21 20:25 Source: patient, EMS, RN notes reviewed, old records reviewed Mode of arrival: EMS Limitations: no limitations - History of Present Illness Initial comments: Patient is a 51-year-old female with past medical history remarkable for atrial fibrillation, cancer, fibromyalgia, GERD, hyperlipidemia, hypertension, seizure disorder who presents emergency Department complaining of a feeling of "jittery- ness" following administration of an epinephrine pen. Patient states she self administered an EpiPen after receiving a bee sting, which is a known ALLERGIC reaction to. This occurred approximately 45 minutes to prior to arrival. She states that shortly after being stung by a bee, she was experiencing mild dyspnea, itching, as well as mild nausea. She missed her that epinephrine pen and had improvement of symptoms immediately. She also took 50 mg of by mouth Benadryl prior to arrival. Patient currently just describes a feeling of jitteriness, and states she feels like she wants to go running around the room. She does state she feels like her heart is "racing". She denies any chest pain, abdominal pain, nausea, vomiting, wheezing, difficulty breathing, headaches, numbness. She is not acute complaint at this time. She states she overall feels better. She would like to go home. - Related Data Home Medications Medication Instructions Recorded Confirmed busPIRone HCL [Buspar] 30 mg PO BID 07/21/14 12/11/20 QUEtiapine FUMARATE [Seroquel Xr] 300 mg PO HS 06/05/17 12/11/20 Cyclobenzaprine [Flexeril] 10 mg PO TID 08/10/19 12/11/20 Loratadine [Claritin] 10 mg PO DAILY 08/10/19 12/11/20 Sertraline [Zoloft] 100 mg PO DAILY 08/10/19 12/11/20 Divalproex ER [Depakote ER] 500 mg PO BID 12/11/20 12/11/20 EPINEPHrine (Auto Inject) [Epipen] 0.3 mg IM ONCE PRN 12/11/20 12/11/20 Ibuprofen [Motrin] 800 mg PO TID 12/11/20 12/11/20 Omeprazole 40 mg PO DAILY 12/11/20 12/11/20 traZODone HCL 50 mg PO HS 12/11/20 12/11/20 Previous Rx's Medication Instructions Recorded Aspirin 81 mg PO DAILY chew 12/12/20 Clopidogrel [Plavix] 75 mg PO DAILY #90 tab 12/12/20 Losartan [Cozaar] 25 mg PO DAILY #90 tab 12/12/20 Metoprolol Tartrate [Lopressor] 50 mg PO BID #180 tab 12/12/20 Pravastatin Sodium [Pravachol] 40 mg PO HS #90 tab 12/12/20 Allergies Allergy/AdvReac Type Severity Reaction Status Date / Time atorvastatin [From Lipitor] Allergy Rash/Hives Verified 07/03/21 20:26 Fish Containing Products Allergy Rash/Hives Verified 07/03/21 20:26 [Fish] Penicillins Allergy Anaphylaxis Verified 07/03/21 20:26 pollen extracts Allergy SNEEZING, Verified 07/03/21 20:26 RUNNY NOSE shellfish derived [Shellfish] Allergy Rash/Hives Verified 07/03/21 20:26 tree and shrub pollen Allergy SNEEZING, Verified 07/03/21 20:26 RUNNY NOSE venom-honey bee Allergy Anaphylaxis Verified 07/03/21 20:26 [bee venom (honey bee)] POLLEN,TREES Allergy SNEEZING, Uncoded 02/20/21 22:24 RUNNY NOSE Review of Systems ROS Statement: Those systems with pertinent positive or pertinent negative responses have been documented in the HPI. ROS Other: All systems not noted in ROS Statement are negative. Past Medical History Past Medical History: Atrial Fibrillation, Cancer, Fibromyalgia, GERD/Reflux, Hyperlipidemia, Hypertension, Osteoarthritis (OA), Seizure Disorder Additional Past Medical History / Comment(s): LAST SEIZURE - APPROX 2016, BACK PAIN, HX OF MELANOMA. ENVIRONMENTAL ALLERGIES History of Any Multi-Drug Resistant Organisms: None Reported Past Surgical History: Cholecystectomy, Hernia Repair, Orthopedic Surgery, Tubal Ligation Additional Past Surgical History / Comment(s): HARDWARE WAS REMOVED RT FOOT. LAURA FUNDOPLICATION. EGD. COLONOSCOPY. RT KNEE SX TO REPAIR TENDON. LT KNEE SCOPE,EGD. BILAT FOOT SX CHILD. REVISION OF LAP. LAURA Past Anesthesia/Blood Transfusion Reactions: No Reported Reaction Additional Past Anesthesia/Blood Transfusion Reaction / Comment(s): no hx blood transfusion Past Psychological History: Anxiety, Depression, PTSD Smoking Status: Current every day smoker Past Alcohol Use History: Occasional Past Drug Use History: None Reported - Past Family History Mother Family Medical History: Cancer Additional Family Medical History / Comment(s): Brain and Lung. General Exam - General Exam Comments Initial Comments: General: Appears in no acute distress. HEAD: Normal with no signs of head trauma. EYES: PERRLA, EOMI, conjunctiva normal, no discharge. ENT: Hearing grossly intact, normal oropharynx. No stridor auscultated. RESPIRATORY: Clear breath sounds bilaterally. No wheezes, rales, or rhonchi. No respiratory distress. C/V: Regular rate and rhythm. S1 and S2 auscultated, no edema, peripheral pulses 2+ and intact throughout ABD: Abd is soft, nontender, nondistended EXT: Normal range of motion, no obvious deformity SKIN: Patient does have a small erythematous macule episode of bee sting over her right shoulder, however there is no signs of urticaria or other rashes. NEURO: Alert and oriented 4. No focal sensory strength deficits. Limitations: no limitations Course Vital Signs 07/03/21 20:20 Temperature 97.9 F Pulse Rate 85 Respiratory 18 Rate Blood Pressure 111/74 O2 Sat by Pulse 98 Oximetry Medical Decision Making - Medical Decision Making Based on the patient's presentation and physical exam, she appears to be expressing palpitations as well as symptoms following her epinephrine pen administration at home. She currently has no acute signs or symptoms of anaphylaxis. However we will provide her with 125 mg of IV Solu-Medrol as well as IV famotidine. She was in agreement this plan. I would like to obtain an EKG as well due to her self described palpitations. She was also initially in agreement this plan. The patient received her medications, she stated she would like to go home. She does not want to wait for a period of observation.The patient was apprised of the potential risks of leaving the hospital AGAINST MEDICAL ADVICE, including serious complications, permanent disability, and . At the time of my interview the patient, the patient was alert, oriented, and capable. Patient signed AMA form, which was witnessed and signed by nursing staff, and placed in patient's chart. I urged the patient to return to the hospital as soon as possible to complete evaluation and treatment. The patient was therefore discharged AGAINST MEDICAL ADVICE. She refuses a prescription for an epinephrine pen. - EKG Data EKG Comments: Patient left AGAINST MEDICAL ADVICE prior to obtaining EKG. Disposition Clinical Impression: Allergic reaction, Bee sting, Heart palpitations Disposition: Left Against Medical Advice Condition: Stable Instructions (If sedation given, give patient instructions): Anaphylaxis (ED) Is patient prescribed a controlled substance at d/c from ED?: No Referrals: Ender Ching MD [Primary Care Provider] - 1-2 days
== END 2021-07-03 20:48 | disposition left against medical advice (07) ==
LOC: EC 20:19
DX: T63.441A Toxic effect of venom of bees, accidental (unintentional), initial encounter (principal); R00.2 Palpitations; I48.91 Unspecified atrial fibrillation; K21.9 Gastro-esophageal reflux disease without esophagitis; E78.5 Hyperlipidemia, unspecified; I10 Essential (primary) hypertension; M19.90 Unspecified osteoarthritis, unspecified site; G40.909 Epilepsy, unspecified, not intractable, without status epilepticus; F41.9 Anxiety disorder, unspecified; F32.9 Major depressive disorder, single episode, unspecified; F43.12 Post-traumatic stress disorder, chronic; F17.200 Nicotine dependence, unspecified, uncomplicated; Z90.49 Acquired absence of other specified parts of digestive tract; Z79.82 Long term (current) use of aspirin; Z88.0 Allergy status to penicillin; Z91.030 Bee allergy status; Z91.013 Allergy to seafood; Z88.1 Allergy status to other antibiotic agents; Z98.51 Tubal ligation status; Z79.02 Long term (current) use of antithrombotics/antiplatelets; Z85.820 Personal history of malignant melanoma of skin
CPT/HCPCS: 96374; 96375; 99283

== ENCOUNTER 2021-09-05 05:01 | Emergency (ER) | payer MEDICARE, OTHER ==
--- NOTE | 2021-09-05 05:22 | ED ---
Psych HPI - General Source: patient, police, RN notes reviewed, old records reviewed Mode of arrival: ambulatory Limitations: no limitations - History of Present Illness MD Complaint: suicidal ideation, feels depressed, other (alcohol intoxication) Associated Psychiatric Symptoms: racing thoughts Quality: getting worse Improves With: none Worsens With: alcohol Context: significant life stressor Associated Symptoms: denies other symptoms Treatments Prior to Arrival: placed on mental health hold If Self Harm: admits thoughts of self harm <Osbaldo Hines - Last Filed: 09/05/21 06:04> <Juan Carlos East - Last Filed: 09/06/21 00:04> - General Chief Complaint: Psychiatric Symptoms Stated Complaint: petition Time Seen by Provider: 09/05/21 05:10 - History of Present Illness Initial Comments: This is a 51-year-old female DF for evaluation of psychiatric illness. Patient has recent significant depression and thoughts of suicide wanted to cut herself. Patient is not sleeping. She is drinking alcohol. Patient has recent loss of her which is made not want to live any longer (Osbaldo Hines) - Related Data Home Medications Medication Instructions Recorded Confirmed busPIRone HCL [Buspar] 30 mg PO BID 07/21/14 09/05/21 QUEtiapine FUMARATE [Seroquel Xr] 300 mg PO HS 06/05/17 09/05/21 Cyclobenzaprine [Flexeril] 10 mg PO TID 08/10/19 09/05/21 Loratadine [Claritin] 10 mg PO DAILY 08/10/19 09/05/21 Sertraline [Zoloft] 100 mg PO DAILY 08/10/19 09/05/21 Divalproex ER [Depakote ER] 500 mg PO BID 12/11/20 09/05/21 EPINEPHrine (Auto Inject) [Epipen] 0.3 mg IM ONCE PRN 12/11/20 09/05/21 Ibuprofen [Motrin] 800 mg PO TID PRN 12/11/20 09/05/21 Omeprazole 40 mg PO DAILY 12/11/20 09/05/21 traZODone HCL 50 mg PO HS 12/11/20 09/05/21 Apixaban [Eliquis] 5 mg PO BID 09/05/21 09/05/21 Previous Rx's Medication Instructions Recorded Losartan [Cozaar] 25 mg PO DAILY #90 tab 12/12/20 Metoprolol Tartrate [Lopressor] 50 mg PO BID #180 tab 12/12/20 Pravastatin Sodium [Pravachol] 40 mg PO HS #90 tab 12/12/20 Allergies Allergy/AdvReac Type Severity Reaction Status Date / Time atorvastatin [From Lipitor] Allergy Rash/Hives Verified 09/05/21 12:58 Fish Containing Products Allergy Rash/Hives Verified 09/05/21 12:58 [Fish] Penicillins Allergy Anaphylaxis Verified 09/05/21 12:58 pollen extracts Allergy SNEEZING, Verified 09/05/21 12:58 RUNNY NOSE shellfish derived [Shellfish] Allergy Rash/Hives Verified 09/05/21 12:58 tree and shrub pollen Allergy SNEEZING, Verified 09/05/21 12:58 RUNNY NOSE venom-honey bee Allergy Anaphylaxis Verified 09/05/21 12:58 [bee venom (honey bee)] POLLEN,TREES Allergy SNEEZING, Uncoded 09/05/21 05:07 RUNNY NOSE Review of Systems ROS Other: All systems not noted in ROS Statement are negative. <Osbaldo Hines - Last Filed: 09/05/21 06:04> ROS Other: All systems not noted in ROS Statement are negative. <Juan Carlos East - Last Filed: 09/06/21 00:04> ROS Statement: Those systems with pertinent positive or pertinent negative responses have been documented in the HPI. Past Medical History Past Medical History: Atrial Fibrillation, Cancer, Fibromyalgia, GERD/Reflux, Hyperlipidemia, Hypertension, Osteoarthritis (OA), Seizure Disorder Additional Past Medical History / Comment(s): LAST SEIZURE - APPROX 2016, BACK PAIN, HX OF MELANOMA. ENVIRONMENTAL ALLERGIES History of Any Multi-Drug Resistant Organisms: None Reported Past Surgical History: Cholecystectomy, Hernia Repair, Orthopedic Surgery, Tubal Ligation Additional Past Surgical History / Comment(s): HARDWARE WAS REMOVED RT FOOT. LAURA FUNDOPLICATION. EGD. COLONOSCOPY. RT KNEE SX TO REPAIR TENDON. LT KNEE SCOPE,EGD. BILAT FOOT SX CHILD. REVISION OF LAP. LAURA Past Anesthesia/Blood Transfusion Reactions: No Reported Reaction Additional Past Anesthesia/Blood Transfusion Reaction / Comment(s): no hx blood transfusion Past Psychological History: Anxiety, Depression, PTSD Smoking Status: Current every day smoker Past Alcohol Use History: Occasional Past Drug Use History: None Reported - Past Family History Mother Family Medical History: Cancer Additional Family Medical History / Comment(s): Brain and Lung. <Osbaldo Hines - Last Filed: 09/05/21 06:04> General Exam Limitations: no limitations General appearance: alert, appears intoxicated, anxious Head exam: Present: atraumatic, normocephalic, normal inspection Eye exam: Present: normal appearance, PERRL, EOMI. Absent: scleral icterus, con junctival injection, periorbital swelling ENT exam: Present: normal exam, mucous membranes moist Neck exam: Present: normal inspection. Absent: tenderness, meningismus, lymphadenopathy Respiratory exam: Present: normal lung sounds bilaterally. Absent: respiratory distress, wheezes, rales, rhonchi, stridor Cardiovascular Exam: Present: regular rate, normal rhythm, normal heart sounds. Absent: systolic murmur, diastolic murmur, rubs, gallop, clicks GI/Abdominal exam: Present: soft, normal bowel sounds. Absent: distended, tenderness, guarding, rebound, rigid Extremities exam: Present: normal inspection, full ROM, normal capillary refill. Absent: tenderness, pedal edema, joint swelling, calf tenderness Back exam: Present: normal inspection Neurological exam: Present: alert, oriented X3, CN II-XII intact Psychiatric exam: Present: normal affect, normal mood Skin exam: Present: warm, dry, intact, normal color. Absent: rash <Osbaldo Hines - Last Filed: 09/05/21 06:04> Course <Osbaldo Hines Filed: 09/05/21 06:04> Vital Signs 09/05/21 09/05/21 09/05/21 05:02 08:00 09:00 Temperature 97.9 F Pulse Rate 77 Respiratory 18 18 18 Rate Blood Pressure 96/65 O2 Sat by Pulse 98 Oximetry 09/05/21 09/05/21 09/05/21 10:00 11:13 16:30 Temperature 98 F 98.3 F Pulse Rate 76 85 Respiratory 18 18 20 Rate Blood Pressure 97/66 111/70 O2 Sat by Pulse 96 98 Oximetry - Reevaluation(s) Reevaluation #1: 09/05/21 06:00 medical record is reviewed (Osbaldo Hines) Medical Decision Making <Juan Carlos East - Last Filed: 09/06/21 00:04> - Medical Decision Making Patient wasn't acutely intoxicated patient with history of depression who presented for suicidal ideations. She was pending severity prior to psychiatric evaluation. During my shift, patient is sober. Psychiatry evaluated the patient and cleared the patient discharged home with a safety plan. Patient will be discharged home with the daughter. Patient was therefore discharged home in stable condition. (Juan Carlos East) - Lab Data Lab Results 09/05/21 Range/Units 12:15 Urine Opiates Screen Not Detected (NotDetected) Ur Oxycodone Screen Not Detected (NotDetected) Urine Methadone Screen Not Detected (NotDetected) Ur Propoxyphene Screen Not Detected (NotDetected) Ur Barbiturates Screen Not Detected (NotDetected) U Tricyclic Antidepress Detected H (NotDetected) Ur Phencyclidine Scrn Not Detected (NotDetected) Ur Amphetamines Screen Not Detected (NotDetected) U Methamphetamines Scrn Not Detected (NotDetected) U Benzodiazepines Scrn Not Detected (NotDetected) Urine Cocaine Screen Not Detected (NotDetected) U Marijuana (THC) Screen Not Detected (NotDetected) Disposition <Osbaldo Hines - Last Filed: 09/05/21 06:04> Is patient prescribed a controlled substance at d/c from ED?: No <Juan Carlos East - Last Filed: 09/06/21 00:04> Clinical Impression: Alcohol intoxication, Encounter for psychiatric assessment Disposition: HOME SELF-CARE Condition: Good Instructions (If sedation given, give patient instructions): Suicide Prevention (ED) Referrals: Edner Ching MD [Primary Care Provider] - 1-2 days
[2021-09-05 13:09] LABS: Amphetamine Screen,Urine Not Detected (NotDetected); Barbiturate Screen,Urine Not Detected (NotDetected); Benzodiazepines Screen,Urine Not Detected (NotDetected); Cocaine Screen,Urine Not Detected (NotDetected); Methadone Screen, Urine Not Detected (NotDetected); Opiate Screen,Urine Not Detected (NotDetected); Oxycodone Screen, Urine Not Detected (NotDetected); Phencyclidine Screen,Urine Not Detected (NotDetected); Tricyclic Antidepressant,Urine Detected (NotDetected); Urn Cannabinoid Scrn Not Detected (NotDetected)
[2021-09-05 16:33] VITALS: BP 111/70; PULSE 85; RESP 20; TEMP 98.3
== END 2021-09-05 17:33 | disposition home or self-care (01) ==
LOC: EC 05:01
DX: Z04.6 Encounter for general psychiatric examination, requested by authority (principal); F10.129 Alcohol abuse with intoxication, unspecified; I48.91 Unspecified atrial fibrillation; E78.5 Hyperlipidemia, unspecified; K21.9 Gastro-esophageal reflux disease without esophagitis; I10 Essential (primary) hypertension; M19.90 Unspecified osteoarthritis, unspecified site; G40.909 Epilepsy, unspecified, not intractable, without status epilepticus; F41.9 Anxiety disorder, unspecified; F32.9 Major depressive disorder, single episode, unspecified; F43.10 Post-traumatic stress disorder, unspecified; Z72.89 Other problems related to lifestyle; Z79.01 Long term (current) use of anticoagulants; Z79.899 Other long term (current) drug therapy
CPT/HCPCS: 80306; 82075; 99285

== ENCOUNTER → 2022-03-04 | Outpatient (CLI) | payer MEDICARE, OTHER ==
--- NOTE | 2022-03-04 14:47 | NM ---
EXAMINATION TYPE: NM bone/joint limited DATE OF EXAM: 03/04/2022 COMPARISON: NONE HISTORY: L03.113, catheter by 1 month ago TECHNIQUE: After the intravenous administration of 24.3 mCi Tc 99m MDP. Images acquired 3 hours pos t injection. Multiple views of hands and wrists are submitted. There is mild uptake which is asymmetric involving the carpometacarpal joint of the second digit of t he right hand. Uptake within the wrists and fingers is felt likely to be due to underlying arthropath y. IMPRESSION: Correlate for possible underlying cellulitis or septic arthritis, difficult to exclude os teomyelitis to the second metacarpophalangeal joint of the right hand, correlate for clinical area of concern
== END | disposition home or self-care (01) ==
LOC: RADNMMAIN 10:36
PROVIDERS: ATTEND Internal Medicine
DX: L03.113 Cellulitis of right upper limb (principal)
CPT/HCPCS: 78300; A9503

== ENCOUNTER → 2022-03-08 | Day surgery (SDC) | payer MEDICARE, OTHER ==
[2022-03-07 13:30] VITALS: BMI 34.6
[~2022-03-08] MED LIST changes: -CLINDAMYCIN 900 MG in DEXTROSE 5% IN WATER 50 ML IVPB ONE; -DEXAMETHASONE SOD PHOSPHATE 10 MG/ML 1 ML VIAL IV ONE; -GENTAMICIN 380 MG in SODIUM CHLORIDE 0.9% 100 ML IVPB ONE; -HEPARIN SODIUM,PORCINE 5,000 UNIT/ML 1 ML VIAL SQ ONE; -LACTATED RINGERS 1,000 ML IV SCH; +LIDOCAINE 1% PF 10 MG/ML (5 ML AMP) SQ ONE; -ONDANSETRON 4 MG/2 ML VIAL IVP ONE
[2022-03-08 11:26] VITALS: BP 105/63; PULSE 72; RESP 16; TEMP 98.4
--- NOTE | 2022-03-08 12:11 | IR ---
PICC LINE PLACEMENT: HISTORY: Infection requiring long-term antibiotic therapy PROCEDURE: Ultrasound and fluoroscopic guidance of PICC line placement. COMPLICATIONS: None ANESTHESIA: 1. 1% Lidocaine locally. FINDINGS/TECHNIQUE: The procedure was explained to the patient. The risks, complications, benefits and alternatives were discussed and any questions were answered. Informed consent was obtained. The patient was placed supine on the fluoroscopic table and prepped and draped in the usual sterile fash ion. Utilizing a 21 gauge needle and sonographic and fluoroscopic guidance, access in the left ceph alic vein was achieved and there is placement of a 0.018 guidewire. The vein is patent. A 4-F sheat h was placed over the guidewire. The guidewire and dilator were removed and a 4-F. PICC line was tiffany kellen through the sheath with the tip at the level of the SVC. The sheath was removed, the catheter wa s flushed and sutured into position. The patient was stable throughout the procedure and remained st able upon discharge from the Department of Radiology. The vein puncture was patent under ultrasound. A hernandez scale image was obtained to document patency of the vein punctured. All elements of the maximal barrier technique were utilized. FLUOROSCOPY TIME: 0.1 minutes and on image submitted. IMPRESSION: Successful PICC line placement under ultrasound and fluoroscopic guidance.
[2022-03-08 13:10] LABS: Basophils # (A) 0.1 k/uL (0-0.2); Basophils % (A) 1 %; Eosinophils # (A) 0.5 k/uL (0-0.7); Eosinophils % (A) 9 %; HCT 40.8 % (34.0-46.0); HGB 13.2 gm/dL (11.4-16.0); Lymphocytes # (A) 1.5 k/uL (1.0-4.8); Lymphocytes % (A) 27 %; MCH 31.3 pg (25.0-35.0); MCHC 32.3 g/dL (31.0-37.0); MCV 96.8 fL (80.0-100.0); Monocytes # (A) 0.3 k/uL (0-1.0); Monocytes % (A) 5 %; Neutrophils # (A) 3.1 k/uL (1.3-7.7); Neutrophils % (A) 57 %; Platelet Count 119 k/uL (150-450); RBC 4.22 m/uL (3.80-5.40); RDW 12.9 % (11.5-15.5); WBC 5.5 k/uL (3.8-10.6)
[2022-03-08 13:15] LABS: African American GFR (CKD) >90 (>60 ml/min/1.73 sqM); Anion Gap 9 mmol/L; Blood Urea Nitrogen 12 mg/dL (7-17); Carbon Dioxide 20 mmol/L (22-30); Chloride 110 mmol/L (98-107); Non-African American GFR(CKD) >90 (>60 ml/min/1.73 sqM); Potassium 4.1 mmol/L (3.5-5.1); Sodium 139 mmol/L (137-145)
== END ==
LOC: CATHCVL 10:27
PROVIDERS: ATTEND Radiology Diagnostic Radiology
DX: M86.8X4 Other osteomyelitis, hand (principal); G40.909 Epilepsy, unspecified, not intractable, without status epilepticus; I48.91 Unspecified atrial fibrillation; F17.210 Nicotine dependence, cigarettes, uncomplicated; F32.A Depression, unspecified; R19.7 Diarrhea, unspecified; E66.9 Obesity, unspecified; Z68.34 Body mass index [BMI] 34.0-34.9, adult; Z79.899 Other long term (current) drug therapy; Z79.02 Long term (current) use of antithrombotics/antiplatelets; Z79.01 Long term (current) use of anticoagulants; Z88.8 Allergy status to other drugs, medicaments and biological substances; Z80.9 Family history of malignant neoplasm, unspecified
CPT/HCPCS: 36573; 80051; 82565; 84520; 85025; C1751; C1769; J2001

== ENCOUNTER 2022-04-03 08:26 | Emergency (ER) | payer MEDICARE, OTHER ==
[2022-04-03 08:33] VITALS: BP 77/33; PULSE 75; RESP 18; TEMP 97.9
--- NOTE | 2022-04-03 09:33 | ED ---
General Adult HPI - General Chief complaint: Recheck/Abnormal Lab/Rx Stated complaint: picc line issue Time Seen by Provider: 04/03/22 08:40 Source: patient, RN notes reviewed Mode of arrival: ambulatory Limitations: no limitations - History of Present Illness Initial comments: This is a 51-year-old female presented from chief complaint of needing IV for antibiotics. Patient states she is currently on treatment of Rocephin 2 g daily for cat Bite to her right hand. Patient states her swelling around her second MCP. It is improving. She states that she had a PICC line in but it fell out she had a peripheral line placed by her home health care nurse which failed and again states that she was seen at another emergency department yesterday and had a failed IV attempt. Patient states she is scheduled for PICC line on Friday. She denies any. Chills night sweats no increase in symptoms. - Related Data Home Medications Medication Instructions Recorded Confirmed busPIRone HCL [Buspar] 30 mg PO BID-W/MEALS 07/21/14 03/08/22 QUEtiapine FUMARATE [Seroquel Xr] 300 mg PO HS 06/05/17 03/08/22 Cyclobenzaprine [Flexeril] 10 mg PO TID 08/10/19 03/08/22 Loratadine [Claritin] 10 mg PO DAILY 08/10/19 03/08/22 Sertraline [Zoloft] 200 mg PO DAILY 08/10/19 03/08/22 Divalproex ER [Depakote ER] 500 mg PO BID 12/11/20 03/08/22 Omeprazole 40 mg PO DAILY 12/11/20 03/08/22 Apixaban [Eliquis] 5 mg PO BID 09/05/21 03/08/22 Clopidogrel [Plavix] 75 mg PO HS 03/07/22 03/08/22 Ibuprofen [Motrin] 1,600 mg PO QAM PRN 03/07/22 03/08/22 Previous Rx's Medication Instructions Recorded Losartan [Cozaar] 25 mg PO DAILY #90 tab 12/12/20 Metoprolol Tartrate [Lopressor] 50 mg PO BID #180 tab 12/12/20 Pravastatin Sodium [Pravachol] 40 mg PO HS #90 tab 12/12/20 Allergies Allergy/AdvReac Type Severity Reaction Status Date / Time atorvastatin [From Lipitor] Allergy Rash/Hives Verified 04/03/22 08:33 Fish Containing Products Allergy Rash/Hives Verified 04/03/22 08:33 [Fish] Penicillins Allergy Anaphylaxis- Verified 04/03/22 08:33 patient states no longer allergic pollen extracts Allergy SNEEZING, Verified 04/03/22 08:33 RUNNY NOSE shellfish derived [Shellfish] Allergy Rash/Hives Verified 04/03/22 08:33 tree and shrub pollen Allergy SNEEZING, Verified 04/03/22 08:33 RUNNY NOSE venom-honey bee Allergy Anaphylaxis Verified 04/03/22 08:33 [bee venom (honey bee)] POLLEN,TREES Allergy SNEEZING, Uncoded 04/03/22 08:33 RUNNY NOSE Review of Systems ROS Statement: Those systems with pertinent positive or pertinent negative responses have been documented in the HPI. ROS Other: All systems not noted in ROS Statement are negative. Past Medical History Past Medical History: Atrial Fibrillation, Coronary Artery Disease (CAD), Cancer, Fibromyalgia, GERD/Reflux, Hyperlipidemia, Hypertension, Myocardial Infarction (non Q-wave), Osteoarthritis (OA), Seizure Disorder Additional Past Medical History / Comment(s): LAST SEIZURE - APPROX 2016, HX OF MELANOMA. ENVIRONMENTAL ALLERGIES , STATES CAT BITE ON FINGER THAT IS RED , SWOLLEN AND PAINFUL. Last Myocardial Infarction Date:: NOV 2020 History of Any Multi-Drug Resistant Organisms: None Reported Past Surgical History: Cholecystectomy, Heart Catheterization With Stent, Hernia Repair, Orthopedic Surgery, Tubal Ligation Additional Past Surgical History / Comment(s): HARDWARE REMOVED RT FOOT. LAUAR FUNDOPLICATION AND THEN REVISION. , EGD, COLONOSCOPY. RT KNEE SX TO REPAIR TENDON, HEART CATH WITH 2 STENTS ([facility] 12/11/20). LT KNEE SCOPE. BILAT FOOT SX CHILD. RIGHT FOOT SURGERY (2018) Past Anesthesia/Blood Transfusion Reactions: No Reported Reaction Additional Past Anesthesia/Blood Transfusion Reaction / Comment(s): no hx blood transfusion Date of Last Stent Placement:: NOV 2020 Past Psychological History: Anxiety, Depression, PTSD Smoking Status: Current every day smoker Past Alcohol Use History: Occasional Past Drug Use History: None Reported - Past Family History Mother Family Medical History: Cancer Additional Family Medical History / Comment(s): Brain and Lung. General Exam Limitations: no limitations General appearance: alert, in no apparent distress Head exam: Present: atraumatic, normocephalic, normal inspection Neck exam: Present: normal inspection, full ROM. Absent: tenderness, meningismus, lymphadenopathy Respiratory exam: Present: normal lung sounds bilaterally. Absent: respiratory distress, wheezes, rales, rhonchi, stridor Cardiovascular Exam: Present: regular rate, normal rhythm, normal heart sounds. Absent: systolic murmur, diastolic murmur, rubs, gallop, clicks Course Vital Signs 04/03/22 08:27 Temperature 97.9 F Pulse Rate 75 Respiratory 18 Rate Blood Pressure 77/33 O2 Sat by Pulse 96 Oximetry Medical Decision Making - Medical Decision Making Patient will have midline place by cardiovascular lab, patient has 2 weeks left of her antibiotic she will have close follow-up return parameters were discussed. Disposition Clinical Impression: Encounter for peripheral line placement Disposition: HOME SELF-CARE Condition: Stable Instructions (If sedation given, give patient instructions): How to Care for Your Midline Catheter (ED), Midline Catheter (DC) Additional Instructions: Please return to the Emergency Department if symptoms worsen or any other concerns. Is patient prescribed a controlled substance at d/c from ED?: No Referrals: Ender Ching MD [Primary Care Provider] - 1-2 days Time of Disposition: 09:33
== END 2022-04-03 10:09 | disposition home or self-care (01) ==
LOC: EC 08:26
DX: Z45.2 Encounter for adjustment and management of vascular access device (principal); I10 Essential (primary) hypertension; I48.91 Unspecified atrial fibrillation; I25.2 Old myocardial infarction; I25.10 Atherosclerotic heart disease of native coronary artery without angina pectoris; E78.5 Hyperlipidemia, unspecified; K21.9 Gastro-esophageal reflux disease without esophagitis; M19.90 Unspecified osteoarthritis, unspecified site; G40.909 Epilepsy, unspecified, not intractable, without status epilepticus; M79.7 Fibromyalgia; F41.9 Anxiety disorder, unspecified; F32.A Depression, unspecified; F17.200 Nicotine dependence, unspecified, uncomplicated; Z79.01 Long term (current) use of anticoagulants; Z79.02 Long term (current) use of antithrombotics/antiplatelets; Z79.899 Other long term (current) drug therapy
CPT/HCPCS: 36410; 76937; 99283